=== PATIENT | male | born 1945 | race Caucasian/White ===

== ENCOUNTER 2016-08-12 14:35 | Emergency (ER) | payer MEDICARE, OTHER ==
--- NOTE | 2016-08-12 15:03 | ERPHSYRPT ---
- History of Present Illness Time Seen by Provider: 08/12/16 14:56 Historian: patient Exam Limitations: no limitations Patient Subjective Stated Complaint: PT BROUGHT IN BY EMS FROM [facility] REPORT CALLED TO THIS NURSE FROM NURSE AT [facility] STATED PT HAD LABS DRAWN TODAY STATED PT HAD ELEVEATED POTASSIUM BUN AND CREAT STATED ELEVATED BUN AND CREAT NEW FOR PT ALSO STATED PT HAD UROSTOMY AND COLOSTOMY PLACED IN LAST MONTH AT G TUBE PLACED IN LAST WEEK DUE TO PT NOT EATING STATES PT HAS ALSO BEEN COMPLAINING OF ABDOMINAL PAIN AND NAUSEA TODAY PT HAD PRN NORCO AT NOON AND REGULAR SCHEDULED 10/325 NORCO AT 1400 Triage Nursing Assessment: PT LETHARGIC WARM AND DRY RESP EASY NON LABORED. PT ORIENTED TO PERSON AND PLACE RAYSHAWN COLOR NOTED. ABDOMEN NON TENDER ON PALPATION. Physician History: The patient is a 70-year-old male brought in by ambulance from a intermediate where he is lethargic and complains of abdominal pain. Recent laboratory results from today show an increasing creatinine. He had a urostomy and colostomy placed as well as a G-tube. No N/V/D. Timing/Duration: today Activities at Onset: none Quality: aching Abdominal Pain Onset Location: generalized abdomen Pain Radiation: no radiation Severity of Pain-Max: moderate Severity of Pain-Current: moderate Modifying Factors: Improves With: nothing Associated Symptoms: denies symptoms Allergies/Adverse Reactions: No Known Drug Allergies Allergy (Verified 06/26/16 11:04) Home Medications: Allopurinol 300 mg [Zyloprim 300 mg] 300 mg PO DAILY 01/20/12 [History] Hydrocodone Bit/Acetaminophen [[place] 10-325 Tablet] 08/12/16 [History] Hx Tetanus, Diphtheria Vaccination/Date Given: No (UNKNOWN) Hx Influenza Vaccination/Date Given: No Hx Pneumococcal Vaccination/Date Given: No - Review of Systems Constitutional: Malaise Eyes: No Symptoms Ears, Nose, & Throat: No Symptoms Respiratory: No Cough, No Dyspnea Cardiac: No Chest Pain, No Edema, No Syncope Abdominal/Gastrointestinal: Abdominal Pain, Other (colostomy), No Nausea, No Vomiting, No Diarrhea Genitourinary Symptoms: Other (urostomy), No Dysuria Musculoskeletal: No Back Pain, No Neck Pain Skin: No Rash Neurological: No Dizziness, No Focal Weakness, No Sensory Changes Psychological: No Symptoms Endocrine: No Symptoms Hematologic/Lymphatic: No Symptoms Immunological/Allergic: No Symptoms All Other Systems: Reviewed and Negative - Past Medical History Pertinent Past Medical History: Yes Neurological History: No Pertinent History ENT History: No Pertinent History Cardiac History: No Pertinent History Respiratory History: No Pertinent History Endocrine Medical History: Hyperthyroidism, Other Musculoskeletal History: Arthritis GI Medical History: Colorectal Cancer, Polyps History: No Pertinent History Psycho-Social History: No Pertinent History Male Reproductive Disorders: No Pertinent History Other Medical History: gout,thyroid removed,colon cancer hx chemo and radiation. 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 DVT to left leg 2013. UROSTOMY,COLOSTOMY,GTUBE - Past Surgical History Past Surgical History: Yes Neuro Surgical History: No Pertinent History Cardiac: No Pertinent History Respiratory: No Pertinent History Gastrointestinal: Bowel Surgery, Colon Resection Genitourinary: No Pertinent History Musculoskeletal: Orthopedic Surgery Male Surgical History: Prostate Surgery Other Surgical History: port a cath, 3 colon resections,laminiectomy,3 knee scopes, rt hand thumb surgery, states prostate "zapped" Helop apr.22. - Social History Smoking Status: Former smoker How long have you smoked: 2 months Exposure to second hand smoke: No Drug Use: none Patient Lives Alone: No - Nursing Vital Signs Nursing Vital Signs: Initial Vital Signs Temperature 97.2 F Temperature Source Oral Pulse Rate 102 Respiratory Rate 18 Blood Pressure [] 100/64 - Physical Exam General Appearance: mild distress, lethargy Eye Exam: PERRL/EOMI, eyes nml inspection Ears, Nose, Throat Exam: normal ENT inspection, pharynx normal, moist mucous membranes Neck Exam: normal inspection, non-tender, supple, full range of motion Respiratory Exam: normal breath sounds, lungs clear, No respiratory distress Cardiovascular Exam: regular rate/rhythm, normal heart sounds Gastrointestinal/Abdomen Exam: tenderness Rectal Exam: not done Back Exam: normal inspection, normal range of motion, No CVA tenderness, No vertebral tenderness Extremity Exam: normal inspection, normal range of motion, pelvis stable Neurologic Exam: other (lethargic) Skin Exam: normal color, warm, dry SpO2 Interpretation: normal SpO2: 100 Oxygen Delivery: Room Air - Course EKG Interpreted by Me: RATE, Sinus Rhythm, NORMAL AXIS, NORMAL INTERVALS, NORMAL QRS, NORMAL ST-T, Other (no change comp EKG 06/23/16) - CT Exams Abdomen/Pelvis CT Interpretation: Tele-radiologist Report, Other (possible infected fluid collection in pelvic floor. hydronephrosis. ventral dehiscence. right lung base focal airspace disease.) Ordered Tests: Active Orders 24 hr Category Date Time Status EKG-ER Only STAT Care 08/12/16 15:07 Active IV Insertion STAT Care 08/12/16 15:07 Active ABDOMEN AND PELVIS W/0 CONTRAS [CT] Stat Exams 08/12/16 15:08 Completed ABG [ARTERIAL BLOOD GASES] Stat Lab 08/12/16 15:09 Completed CBC W DIFF Stat Lab 08/12/16 15:00 Completed CMP Stat Lab 08/12/16 15:00 Completed LIPASE Stat Lab 08/12/16 15:00 Completed Lactic Acid Urgent Lab 08/12/16 15:07 Completed Manual Differential NC Stat Lab 08/12/16 15:00 Completed Occult Blood,Stool Other Stat Lab 08/12/16 16:34 Completed Potassium (Lab Test) [Potassium] Stat Lab 08/12/16 17:59 Completed TROPONIN Stat Lab 08/12/16 15:00 Completed UA W/ MICROSCOPIC Stat Lab 08/12/16 15:45 Completed Medication Summary Discontinued Medications Generic Name Dose Route Start Last Admin Trade Name Freq PRN Reason Stop Dose Admin Sodium Chloride 1,000 mls @ 999 mls/hr 08/12/16 15:07 08/12/16 15:19 Sodium Chloride 0.9% 1000 Ml IV 08/12/16 16:07 999 mls/hr .Q1H1M STA Administration Sodium Chloride Confirm 08/12/16 15:13 Sodium Chloride 0.9% 1000 Ml Administered 08/12/16 15:14 Dose 1,000 mls @ ud .ROUTE .STK-MED ONE Insulin Human Regular 5 units/ 250.05 mls @ 500 mls/hr 08/12/16 16:30 16:32 Dextrose IV 08/12/16 17:29 500 mls/hr .Q30M SAMUEL Administration Sodium Chloride Confirm 08/12/16 17:21 Sodium Chloride 0.9% 1000 Ml Administered 08/12/16 17:22 Dose 1,000 mls @ ud .ROUTE .STK-MED ONE Lab/Rad Data: Laboratory Result Diagrams 08/12/16 15:00 08/12/16 17:59 Laboratory Results 08/12/16 08/12/16 08/12/16 Range/Units 17:59 16:34 15:45 WBC (4.0-10.5) K/mm3 RBC (4.1-5.6) M/mm3 Hgb (12.5-18.0) gm/dl Hct (42-50) % MCV (78-100) fl MCH (26-32) pg MCHC (32-36) g/dl RDW (11.5-14.0) % Plt Count (150-450) K/mm3 MPV (6-9.5) fl Segmented Neutrophils (36.-66.) % Band Neutrophils (0.0-2.0) % Lymphocytes (Manual) (24-44) % Monocytes (Manual) (0.0-12.0) % Differential Comment Toxic Granulation Platelet Estimate (NORMAL) Hypochromasia Poikilocytosis Anisocytosis Puncture Site pCO2 (35-45) mmHg pO2 (75-100) mmHg Base Excess (-2.0-2.0) O2 Saturation (94-100) g/dF ABG pH (7.35-7.45) ABG HCO3 (22-28) ABG O2 Sat (Measured) (95-100) % Kel Test A-a Gradient a/A Ratio Hemoglobin Carboxyhemoglobin (0.0-6.9) % THgb Methemoglobin (1.4-1.5) % Temperature C POC O2 Flow Rate % Sodium (136-145) mEq/L Potassium 5.6 H (3.5-5.1) mEq/L Chloride (98-107) mEq/L Carbon Dioxide (21-32) mEq/L Anion Gap (5-15) MEQ/L BUN (9-20) mg/dL Creatinine (0.55-1.30) mg/dl Estimated GFR ML/MIN Glucose (70-110) MG/DL Lactic Acid (0.4-2.0) Calcium (8.5-10.1) mg/dL Total Bilirubin (0.2-1.0) mg/dL AST (15-37) U/L ALT (12-78) U/L Alkaline Phosphatase (46-116) U/L Troponin I (0.000-0.056) ng/ml Serum Total Protein (6.4-8.2) gm/dL Albumin (3.4-5.0) g/dL Lipase (73-393) U/L Ur Collection Type CCMS Urine Color YELLOW (YELLOW) Urine Appearance CLOUDY (CLEAR) Urine pH 7.5 (5-6) Ur Specific [place] 1.015 (1.005-1.025) Urine Protein 30 (Negative) Urine Glucose (UA) NEGATIVE (NEGATIVE) mg/dL Urine Ketones NEGATIVE (NEGATIVE) Urine Nitrite NEGATIVE (NEGATIVE) Urine Bilirubin NEGATIVE (NEGATIVE) Urine Urobilinogen 0.2 (0-1) mg/dL Urine WBC (Auto) LARGE (NEGATIVE) Urine RBC (Auto) LARGE (0-5) Alex/ul Urine Microscopic RBC 25-50 (0-2) /HPF Urine Microscopic WBC 25-50 (0-5) /HPF Amorphous Crystals MODERATE (NEGATIVE) /HPF Urine Bacteria MODERATE (NEGATIVE) /HPF Stool Occult Blood POSITIVE (Negative) Specimen Received 08-12-16 1547 08/12/16 08/12/16 08/12/16 Range/Units 15:09 15:07 15:00 WBC (4.0-10.5) K/mm3 RBC (4.1-5.6) M/mm3 Hgb (12.5-18.0) gm/dl Hct (42-50) % MCV (78-100) fl MCH (26-32) pg MCHC (32-36) g/dl RDW (11.5-14.0) % Plt Count (150-450) K/mm3 MPV (6-9.5) fl Segmented Neutrophils (36.-66.) % Band Neutrophils (0.0-2.0) % Lymphocytes (Manual) (24-44) % Monocytes (Manual) (0.0-12.0) % Differential Comment Toxic Granulation Platelet Estimate (NORMAL) Hypochromasia Poikilocytosis Anisocytosis Puncture Site RIGHT BRACHIAL pCO2 37 (35-45) mmHg pO2 97 (75-100) mmHg Base Excess 3.9 H (-2.0-2.0) O2 Saturation 95.4 (94-100) g/dF ABG pH 7.48 H (7.35-7.45) ABG HCO3 27.6 (22-28) ABG O2 Sat (Measured) 96.2 (95-100) % Kel Test NOT APPLICABLE A-a Gradient 6 a/A Ratio 0.94 Hemoglobin 8.8 Carboxyhemoglobin 0.0 (0.0-6.9) % THgb Methemoglobin 0.7 L (1.4-1.5) % Temperature 37.0 C POC O2 Flow Rate 21 % Sodium 137 (136-145) mEq/L Potassium 6.4 H* 6.4 H* (3.5-5.1) mEq/L Chloride 103 (98-107) mEq/L Carbon Dioxide 29.3 (21-32) mEq/L Anion Gap 10.1 (5-15) MEQ/L BUN 121 H (9-20) mg/dL Creatinine 3.04 H (0.55-1.30) mg/dl Estimated GFR 22 ML/MIN Glucose 102 (70-110) MG/DL Lactic Acid 1.1 (0.4-2.0) Calcium 8.6 (8.5-10.1) mg/dL Total Bilirubin 0.3 (0.2-1.0) mg/dL AST 14 L (15-37) U/L ALT < 6 L (12-78) U/L Alkaline Phosphatase 152 H (46-116) U/L Troponin I < 0.017 (0.000-0.056) ng/ml Serum Total Protein 6.3 L (6.4-8.2) gm/dL Albumin 1.5 L (3.4-5.0) g/dL Lipase 186 (73-393) U/L Ur Collection Type Urine Color (YELLOW) Urine Appearance (CLEAR) Urine pH (5-6) Ur Specific [place] (1.005-1.025) Urine Protein (Negative) Urine Glucose (UA) (NEGATIVE) mg/dL Urine Ketones (NEGATIVE) Urine Nitrite (NEGATIVE) Urine Bilirubin (NEGATIVE) Urine Urobilinogen (0-1) mg/dL Urine WBC (Auto) (NEGATIVE) Urine RBC (Auto) (0-5) Alex/ul Urine Microscopic RBC (0-2) /HPF Urine Microscopic WBC (0-5) /HPF Amorphous Crystals (NEGATIVE) /HPF Urine Bacteria (NEGATIVE) /HPF Stool Occult Blood (Negative) Specimen Received 08/12/16 Range/Units 15:00 WBC 14.5 H (4.0-10.5) K/mm3 RBC 2.91 L (4.1-5.6) M/mm3 Hgb 8.7 L (12.5-18.0) gm/dl Hct 27.0 L (42-50) % MCV 92.8 (78-100) fl MCH 29.8 (26-32) pg MCHC 32.2 (32-36) g/dl RDW 18.5 H (11.5-14.0) % Plt Count 633 H (150-450) K/mm3 MPV 9.6 H (6-9.5) fl Segmented Neutrophils 77 H (36.-66.) % Band Neutrophils 1 (0.0-2.0) % Lymphocytes (Manual) 18 L (24-44) % Monocytes (Manual) 4 (0.0-12.0) % Differential Comment ABNORMAL Toxic Granulation 2+ Platelet Estimate INCREASED (NORMAL) Hypochromasia 2+ Poikilocytosis 2+ Anisocytosis 2+ Puncture Site pCO2 (35-45) mmHg pO2 (75-100) mmHg Base Excess (-2.0-2.0) O2 Saturation (94-100) g/dF ABG pH (7.35-7.45) ABG HCO3 (22-28) ABG O2 Sat (Measured) (95-100) % Kel Test A-a Gradient a/A Ratio Hemoglobin Carboxyhemoglobin (0.0-6.9) % THgb Methemoglobin (1.4-1.5) % Temperature C POC O2 Flow Rate % Sodium (136-145) mEq/L Potassium (3.5-5.1) mEq/L Chloride (98-107) mEq/L Carbon Dioxide (21-32) mEq/L Anion Gap (5-15) MEQ/L BUN (9-20) mg/dL Creatinine (0.55-1.30) mg/dl Estimated GFR ML/MIN Glucose (70-110) MG/DL Lactic Acid (0.4-2.0) Calcium (8.5-10.1) mg/dL Total Bilirubin (0.2-1.0) mg/dL AST (15-37) U/L ALT (12-78) U/L Alkaline Phosphatase (46-116) U/L Troponin I (0.000-0.056) ng/ml Serum Total Protein (6.4-8.2) gm/dL Albumin (3.4-5.0) g/dL Lipase (73-393) U/L Ur Collection Type Urine Color (YELLOW) Urine Appearance (CLEAR) Urine pH (5-6) Ur Specific [place] (1.005-1.025) Urine Protein (Negative) Urine Glucose (UA) (NEGATIVE) mg/dL Urine Ketones (NEGATIVE) Urine Nitrite (NEGATIVE) Urine Bilirubin (NEGATIVE) Urine Urobilinogen (0-1) mg/dL Urine WBC (Auto) (NEGATIVE) Urine RBC (Auto) (0-5) Alex/ul Urine Microscopic RBC (0-2) /HPF Urine Microscopic WBC (0-5) /HPF Amorphous Crystals (NEGATIVE) /HPF Urine Bacteria (NEGATIVE) /HPF Stool Occult Blood (Negative) Specimen Received - Progress Progress: improved Progress Note: 08/12/16 18:36 At the request of Dr. Aranda I contacted [facility] in [place] and discussed with numerous physicians the patient's findings and diagnoses. I spoke with Dr. Morales, Dr. Floyd, and DIRECTOR OF GRADUATE ADMISSIONS Shiloh who recommend that the patient remain at [facility] for hydration and reevaluation. Their concern was that the [address] ambulance to [place] would be more harmful than helpful to the patient. I spoke with Dr. Aranda once again apprising him of the situation in [place] and he requested that I try [facility] for transfer of the patient. I spoke with Dr. Flores,the hospitalist, Dr. Crockett the sales development consultant and Dr. Jones the urologist who accepts the patient for transfer. The patient will be placed in ICU at [facility] in [place]. Discussed with : Manoj (Discussed findings with Dr Aranda who recommends transfer to [facility]) Counseled pt/family regarding: lab results, diagnosis, rad results - Departure Time of Disposition: 18:42 Departure Disposition: Transfer (Transfer to [facility] per Bon Mccracken, and Robert) Clinical Impression: Acute renal failure, Hyperkalemia, Dehydration, Hydronephrosis Condition: Good Critical Care Time: No
[2016-08-12] MEDS ORDERED: Sodium Chloride 0.9% 1000 ML 1,000 ML IV STA (15:07)
[2016-08-12] MEDS ORDERED: Sodium Chloride 0.9% 1000 ML 1,000 ML ONE ×3 (15:13→18:56)
[2016-08-12 15:19] LABS: Mean Cell Volume 92.8 fl (78-100); Mean Corpuscular Hemoglobin 29.8 pg (26-32); Mean Platelet Volume 9.6 fl (6-9.5); Platelet Count 633 K/mm3 (150-450); Red Blood Count 2.91 M/mm3 (4.1-5.6); Red Cell Distribution Width 18.5 % (11.5-14.0); White Blood Count 14.5 K/mm3 (4.0-10.5)
[2016-08-12 15:47] LABS: A-aADO2 6; ARTERIAL BLD GAS O2 SATURATION 96.2 % (95-100); ARTERIAL BLOOD GAS BASE EXCESS 3.9 (-2.0-2.0); ARTERIAL BLOOD GAS FIO2 21 %; ARTERIAL BLOOD GAS PO2 97 mmHg (75-100); ARTERIAL BLOOD GAS pH 7.48 (7.35-7.45)
[2016-08-12 15:49] LABS: ALBUMIN 1.5 g/dL (3.4-5.0); ALKALINE PHOSPHATASE 152 U/L (46-116); ANION GAP 10.1 MEQ/L (5-15); BILIRUBIN,TOTAL 0.3 mg/dL (0.2-1.0); BLOOD UREA NITROGEN 121 mg/dL (9-20); CHLORIDE 103 mEq/L (98-107); Carbon Dioxide 29.3 mEq/L (21-32); Glucose 102 MG/DL (70-110); LIPASE 186 U/L (73-393); SGOT/AST 14 U/L (15-37); SODIUM 137 mEq/L (136-145); Total Protein 6.3 gm/dL (6.4-8.2)
[2016-08-12 15:50] LABS: Potassium 6.4 mEq/L (3.5-5.1); SGPT/ALT < 6 U/L (12-78); TROPONIN < 0.017 ng/ml (0.000-0.056)
[2016-08-12 15:57] LABS: BAND 1 % (0.0-2.0); Total Cells Counted 100
[2016-08-12 15:58] LABS: Platelet Estimate INCREASED (NORMAL); Toxic Granulation 2+
[2016-08-12 15:59] LABS: ANISOCYTOSIS 2+; Hypochromia 2+; Poikilocytosis 2+
[2016-08-12 16:09] LABS: Collection Type CCMS
[2016-08-12 16:10] LABS: Ph 7.5 (5-6)
[2016-08-12 16:11] LABS: COMPLETE URINE MICROSCOPIC? YES
[2016-08-12 16:14] LABS: Bacteria MODERATE /HPF (NEGATIVE); WBC 25-50 /HPF (0-5)
--- NOTE | 2016-08-12 16:16 | XRAY ---
Indication: Abdominal pain and vomiting. History of colon cancer with colostomy and urostomy. Multiple contiguous axial images obtained through the abdomen and pelvis without contrast as ordered. Enteric contrast given. Comparison: CT abdomen December 04, 2009 Lung bases demonstrate small focus of groundglass airspace opacity in the right base posteriorly. Also new 7 mm noncalcified subpleural nodule in the left lung base posterior medially indeterminant at this time. Heart is not enlarged. New PEG tube with the balloon tip in the antral portion of the stomach lumen. There has been interval right hemicolectomy with new left lower quadrant diverting colostomy. Stomach and bowel loops appear nonobstructed. In the posterior pelvic floor, there is a curvilinear opacity partially surrounding the colon/rectum measuring at least 8.3 cm in transverse diameter and 4 cm in thickness with tiny air bubbles concerning for infected fluid collection. Hounsfield units are 13-26. Urinary bladder surgically absent with bilateral double-J ureteral stent catheters terminating in right lower quadrant ileoconduit and eventually exiting via right lower quadrant urostomy. Both kidneys are mildly hydronephrotic and both ureters are also slightly prominent, left greater than right. Patency of the ureteral stent catheters are in question. Remaining liver, gallbladder, pancreas, spleen, adrenal glands, and kidneys appear unremarkable for noncontrast exam. Minimal aortic calcifications without AAA. Osseous structures intact with mild spinal degenerative changes. Infraumbilical midline ventral incision appears widened concerning for dehiscence. Impression: 1. There is irregular opacity in the pelvic floor posteriorly with tiny air bubbles concerning for infected fluid collection. 2. Postsurgical changes including partial colectomy with diverting left lower quadrant colostomy and PEG tube in situ. 3. Cystectomy with right lower quadrant ileoconduit and bilateral ureteral stent catheters. There is mild bilateral hydronephrosis and mild bilateral hydroureter. Patency of the ureteral stent catheters are in question. Comparison studies would be of benefit. 4. New indeterminate 7 mm noncalcified subpleural nodule in the left lung base. 5. Query infraumbilical ventral incisional dehiscence. 6. Right lung base focal airspace disease. CTDI 16.44
[2016-08-12] MEDS ORDERED: [UNRECOGNIZED DRUG - OTHER] IV SCH (16:30)
[2016-08-12] MEDS ORDERED: DEXTROSE 10% IV SCH (16:30)
[2016-08-12 17:06] VITALS: O2SAT 100
[2016-08-12] MEDS ORDERED: Sodium Chloride 0.9% 1000 ML 1,000 ML IV SCH (19:00)
[2016-08-12 19:03] VITALS: BP 101/55; PULSE 100
== END 2016-08-12 19:55 | disposition short-term general hospital (02) ==
LOC: ED 14:35
DX: N17.9 Acute kidney failure, unspecified (principal); E87.5 Hyperkalemia; N13.30 Unspecified hydronephrosis; Z93.3 Colostomy status; Z93.1 Gastrostomy status; Z93.6 Other artificial openings of urinary tract status; R10.84 Generalized abdominal pain; R53.83 Other fatigue; Z85.038 Personal history of other malignant neoplasm of large intestine
CPT/HCPCS: 36415; 36600; 74176; 80053; 81000; 82272; 82375; 82803; 83605; 83690; 84132; 84484; 85025; 93005; 96360; 96361; 96365; 99284; J1815

== ENCOUNTER 2017-01-26 11:38 | Observation (INO) | payer MEDICARE, OTHER ==
[2017-01-26] MEDS ORDERED: Sodium Chloride 0.9% 1000 ML 1,000 ML IV SCH (12:00)
[2017-01-26] MEDS ORDERED: Sodium Chloride 0.9% 1000 ML 1,000 ML ONE (12:03)
[2017-01-26 12:15] LABS: BASOPHIL % 0.3 % (0.0-0.4); Eosinophil % 3.1 % (0.00-5.0); Granulocytes % 72.8 % (36.0-66.0); Lymphocytes % 15.7 % (24.0-44.0); Mean Corpuscular Hemoglobin 29.4 pg (26-32); Mean Platelet Volume 8.5 fl (6-9.5); Monocytes % 8.1 % (0.0-12.0); Platelet Count 393 K/mm3 (150-450); Red Blood Count 2.65 M/mm3 (4.1-5.6); Red Cell Distribution Width 14.1 % (11.5-14.0); White Blood Count 9.5 K/mm3 (4.0-10.5)
[2017-01-26 13:02] LABS: ALBUMIN 2.5 g/dL (3.4-5.0); ANION GAP 14.9 MEQ/L (5-15); BILIRUBIN,TOTAL 0.3 mg/dL (0.2-1.0); Carbon Dioxide 27.1 mEq/L (21-32); Potassium 4.8 mEq/L (3.5-5.1)
--- NOTE | 2017-01-26 13:15 | ERPHSYRPT ---
- History of Present Illness Time Seen by Provider: 01/26/17 11:48 Source: patient, EMS, custodial records Patient Subjective Stated Complaint: [facility] REPORTS PATIENT HAD LABS DRAWN THIS AM AND POTASSIUM WAS ELEVATED AND HGB LOW. PATIENT STATES HE HASN'T FELT WELL FOR TWO DAYS. HAVING DIZZINESS AND FEELS OFF BALANCE WHEN HE WALKS. Triage Nursing Assessment: TO ROOM PER EMS COT. SKIN W/D, PALE. RESP NONLABORED. PATIENT AMBULATED FROM COT TO ER BED AND WAS UNSTEADY. Physician History: CC: weakness Hx: 71 y/o man from [facility] has hx of colon cancer s/p surgical treatment with urostomy and colostomy in Dec. He noted presyncope and feeling like going to pass out when up for the past 4 days. He was noted to have worsened anemia and his K was high so he was sent to ER. No chest or abd pain. No vomiting. No fever or chills. Allergies/Adverse Reactions: No Known Drug Allergies Allergy (Verified 01/26/17 12:05) Home Medications: Allopurinol 300 mg [Zyloprim 300 mg] 300 mg PO DAILY 01/20/12 [History] Hydrocodone Bit/Acetaminophen [[place] 10-325 Tablet] 5 mg PO Q4HPRN PRN 08/12/16 [History] PANTOPRAZOLE 40 mg Tablet [Protonix 40MG Tablet] 40 mg PO BID 01/26/17 [ History] Hx Tetanus, Diphtheria Vaccination/Date Given: No (UNKNOWN) Hx Influenza Vaccination/Date Given: No Hx Pneumococcal Vaccination/Date Given: Yes - Review of Systems Constitutional: Fatigue, Malaise, Weakness, No Fever, No Chills Eyes: No Symptoms Ears, Nose, & Throat: No Symptoms Respiratory: No Cough, No Dyspnea Cardiac: No Chest Pain Abdominal/Gastrointestinal: No Abdominal Pain, No Nausea, No Vomiting Neurological: No Focal Weakness, No Parasthesia All Other Systems: Reviewed and Negative - Past Medical History Pertinent Past Medical History: Yes Neurological History: No Pertinent History ENT History: No Pertinent History Cardiac History: No Pertinent History Respiratory History: No Pertinent History Endocrine Medical History: Hyperthyroidism, Other Musculoskeletal History: Arthritis GI Medical History: Colorectal Cancer, Polyps History: No Pertinent History Psycho-Social History: No Pertinent History Male Reproductive Disorders: No Pertinent History Other Medical History: gout,thyroid removed,colon cancer hx chemo and radiation. 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 DVT to left leg 2013. UROSTOMY,COLOSTOMY,GTUBE - Past Surgical History Past Surgical History: Yes Neuro Surgical History: No Pertinent History Cardiac: No Pertinent History Respiratory: No Pertinent History Gastrointestinal: Bowel Surgery, Colon Resection Genitourinary: No Pertinent History Musculoskeletal: Orthopedic Surgery Male Surgical History: Prostate Surgery Other Surgical History: port a cath, 3 colon resections,laminiectomy,3 knee scopes, rt hand thumb surgery, states prostate "zapped" Helop apr.22. - Social History Smoking Status: Former smoker How long have you smoked: 2 months Exposure to second hand smoke: No Drug Use: none Patient Lives Alone: No - Nursing Vital Signs Nursing Vital Signs: Initial Vital Signs Temperature 97.7 F Temperature Source Oral Pulse Rate 90 Respiratory Rate 16 Blood Pressure [Right Arm] 84/56 Pain Intensity 0 - Physical Exam General Appearance: alert Eye Exam: PERRL/EOMI Ears, Nose, Throat Exam: dry mucous membranes Neck Exam: normal inspection, supple Respiratory Exam: normal breath sounds, diminished breath sounds Cardiovascular Exam: regular rate/rhythm Gastrointestinal/Abdomen Exam: soft, other (colostomy has black stool), No tenderness, No distention Male Genitalia Exam: other (some pus from penis which he states is long standing ) Extremity Exam: pedal edema Neurologic Exam: alert, oriented x 3, cooperative, sensation nml, No motor deficits Skin Exam: warm, dry SpO2 Interpretation: normal SpO2: 99 Oxygen Delivery: Room Air - Course Nursing assessment & vital signs reviewed: Yes EKG Interpreted by Me: RATE (90), Sinus Rhythm, NORMAL AXIS, NORMAL INTERVALS ( QTc 424), NORMAL QRS, NORMAL ST-T - Radiology Exams cxr X-ray Interpretation: Reviewed by me (no acute) Ordered Tests: Active Orders 24 hr Category Date Time Status EKG-ER Only STAT Care 01/26/17 11:48 Active IV Insertion STAT Care 01/26/17 11:48 Active Orthostatic Vital Signs STAT Care 01/26/17 13:29 Active CHEST 1 VIEW (PORTABLE) Stat Exams 01/26/17 11:48 Taken CBC W DIFF Stat Lab 01/26/17 11:48 Completed CMP Stat Lab 01/26/17 12:00 Completed Lactic Acid Stat Lab 01/26/17 12:13 Completed Occult Blood,Stool Other Stat Lab 01/26/17 11:49 Completed Medication Summary Generic Name Dose Route Start Last Admin Trade Name Christian PRN Reason Stop Dose Admin Sodium Chloride 1,000 mls @ 50 mls/hr 01/26/17 12:00 01/26/17 12:04 Sodium Chloride 0.9% 1000 Ml IV 02/25/17 11:59 50 mls/hr .Q20H SAMUEL Administration Lab/Rad Data: Laboratory Result Diagrams 01/26/17 11:48 01/26/17 12:00 Laboratory Results 01/26/17 01/26/17 01/26/17 Range/Units 12:13 12:00 12:00 WBC (4.0-10.5) K/mm3 RBC (4.1-5.6) M/mm3 Hgb (12.5-18.0) gm/dl Hct (42-50) % MCV (78-100) fl MCH (26-32) pg MCHC (32-36) g/dl RDW (11.5-14.0) % Plt Count (150-450) K/mm3 MPV (6-9.5) fl Gran % (36.0-66.0) % Lymphocytes % (24.0-44.0) % Monocytes % (0.0-12.0) % Eosinophils % (0.00-5.0) % Basophils % (0.0-0.4) % Basophils # (0-0.4) Sodium 135 L (136-145) mEq/L Potassium 4.8 (3.5-5.1) mEq/L Chloride 98 (98-107) mEq/L Carbon Dioxide 27.1 (21-32) mEq/L Anion Gap 14.9 (5-15) MEQ/L BUN 69 H (9-20) mg/dL Creatinine 2.08 H (0.55-1.30) mg/dl Estimated GFR 33 ML/MIN Glucose 122 H (70-110) MG/DL Lactic Acid 1.2 (0.4-2.0) Calcium 9.6 (8.5-10.1) mg/dL Total Bilirubin 0.30 (0.2-1.0) mg/dL AST 20 (15-37) U/L ALT 23 (12-78) U/L Alkaline Phosphatase 112 (46-116) U/L Serum Total Protein 7.0 (6.4-8.2) gm/dL Albumin 2.5 L (3.4-5.0) g/dL Stool Occult Blood (Negative) ABO Group A Rh Factor POSITIVE Antibody Screen NEGATIVE (NEGATIVE) 01/26/17 01/26/17 Range/Units 11:49 11:48 WBC 9.5 (4.0-10.5) K/mm3 RBC 2.65 L (4.1-5.6) M/mm3 Hgb 7.8 L (12.5-18.0) gm/dl Hct 24.9 L (42-50) % MCV 94.0 (78-100) fl MCH 29.4 (26-32) pg MCHC 31.3 L (32-36) g/dl RDW 14.1 H (11.5-14.0) % Plt Count 393 (150-450) K/mm3 MPV 8.5 (6-9.5) fl Gran % 72.8 H (36.0-66.0) % Lymphocytes % 15.7 L (24.0-44.0) % Monocytes % 8.1 (0.0-12.0) % Eosinophils % 3.1 (0.00-5.0) % Basophils % 0.3 (0.0-0.4) % Basophils # 0.03 (0-0.4) Sodium (136-145) mEq/L Potassium (3.5-5.1) mEq/L Chloride (98-107) mEq/L Carbon Dioxide (21-32) mEq/L Anion Gap (5-15) MEQ/L BUN (9-20) mg/dL Creatinine (0.55-1.30) mg/dl Estimated GFR ML/MIN Glucose (70-110) MG/DL Lactic Acid (0.4-2.0) Calcium (8.5-10.1) mg/dL Total Bilirubin (0.2-1.0) mg/dL AST (15-37) U/L ALT (12-78) U/L Alkaline Phosphatase (46-116) U/L Serum Total Protein (6.4-8.2) gm/dL Albumin (3.4-5.0) g/dL Stool Occult Blood POSITIVE (Negative) ABO Group Rh Factor Antibody Screen (NEGATIVE) - Progress Progress Note: 01/26/17 13:54 Pt has black stool in ostomy that is heme positive. Hg low. K ok. He does have some hypotension. Called Dr Boyer for Manoj and will place in obs for IVF and serial H/H. Counseled pt/family regarding: lab results, diagnosis, need for follow-up, rad results - Departure Time of Disposition: 13:55 Departure Disposition: Observation Clinical Impression: Anemia, GI bleeding, Hypotension, Hx of malignant neoplasm of colon Condition: Fair Critical Care Time: No
[2017-01-26] MEDS ORDERED: PROTONIX 40 MG IV IV ONE ×2 (13:56→13:57)
[2017-01-26 14:06] LABS: INR 1.18 (0.8-3.0); PROTIME 13.3 SECONDS (8.83-12.87)
[2017-01-26 14:08] LABS: PTT 53.9 SECONDS (24.1-36.1)
[2017-01-26] MEDS ORDERED: Zofran 4 MG/2 ML VIAL IV PRN (14:47)
[2017-01-26 16:16] LABS: BASOPHIL % 0.2 % (0.0-0.4); Eosinophil % 2.8 % (0.00-5.0); Granulocytes % 73.7 % (36.0-66.0); Lymphocytes % 15.5 % (24.0-44.0); Mean Cell Volume 93.7 fl (78-100); Mean Platelet Volume 7.9 fl (6-9.5); Monocytes % 7.8 % (0.0-12.0); Platelet Count 354 K/mm3 (150-450); Red Blood Count 2.52 M/mm3 (4.1-5.6); White Blood Count 8.5 K/mm3 (4.0-10.5)
[2017-01-26 16:17] LABS: Mean Corpuscular Hemoglobin 28.9 pg (26-32)
--- NOTE | 2017-01-26 20:20 | XRAY ---
Indication: Hyperkalemia. Comparison: June 23, 2016. Portable chest remains hyperinflated and clear. Heart is not enlarged. Vascularity normal. Stable left sided Port-A-Cath. Bony thorax intact. Impression: Stable nonacute hyperinflated chest.
[2017-01-26] MEDS: Carafate 1 GM PO SCH (21:11)
[2017-01-26] MEDS: FEOSOL 325 MG PO SCH (21:13)
[2017-01-26] MEDS: Protonix 40MG Tablet PO SCH (21:13)
[2017-01-26] MEDS: REMERON 30 MG PO SCH (21:14)
[2017-01-26] MEDS ORDERED: PATIENT OWN MEDICATION PO SCH ×2 (22:00)
[2017-01-26] MEDS: Norco 10/325 MG Tablet PO SCH (22:26)
[2017-01-27] MEDS: Sodium Chloride 0.9% 1000 ML 1,000 ML IV SCH ×3 (03:08→21:59)
[2017-01-27 04:20] LABS: Mean Cell Volume 91.3 fl (78-100); Mean Corpuscular Hemoglobin 29.4 pg (26-32); Mean Platelet Volume 8.6 fl (6-9.5); Platelet Count 310 K/mm3 (150-450); Red Blood Count 3.33 M/mm3 (4.1-5.6); Red Cell Distribution Width 14.1 % (11.5-14.0); White Blood Count 7.5 K/mm3 (4.0-10.5)
[2017-01-27 04:50] LABS: ALBUMIN 2.3 g/dL (3.4-5.0); BILIRUBIN,TOTAL 0.9 mg/dL (0.2-1.0); Carbon Dioxide 26.6 mEq/L (21-32); Potassium 4.7 mEq/L (3.5-5.1); Total Protein 6.7 gm/dL (6.4-8.2)
[2017-01-27 06:04] LABS: Basophil 1 % (0.0-1.0); Eosinophil 3 % (0.00-3.0); Total Cells Counted 100
[2017-01-27 06:06] LABS: ANISOCYTOSIS 1+; Platelet Estimate NORMAL (NORMAL); Poikilocytosis 1+; Polychromasia 1+
[2017-01-27] MEDS: Carafate 1 GM PO SCH ×4 (06:33→22:01)
[2017-01-27] MEDS ORDERED: MILK OF MAGNESIA 30 ML PO PRN (07:29)
[2017-01-27] MEDS ORDERED: NORCO 5/325 MG PO PRN (07:29)
[2017-01-27] MEDS ORDERED: Colace 100 MG PO PRN (07:29)
[2017-01-27] MEDS ORDERED: TYLENOL 325 MG PO PRN (07:29)
[2017-01-27] MEDS ORDERED: MEDICATION INTERVENTION MC PRN (08:04)
[2017-01-27] MEDS: ZYLOPRIM 300 MG PO SCH (08:25)
[2017-01-27] MEDS: FEOSOL 325 MG PO SCH ×3 (08:25→22:01)
[2017-01-27] MEDS: PROZAC 10 MG PO SCH (08:25)
[2017-01-27] MEDS: MAG-OX 400 PO SCH (08:25)
[2017-01-27] MEDS: ZOFRAN ODT 4 MG PO SCH ×4 (08:25→19:50)
[2017-01-27] MEDS: Miralax Powder 17GM PACKET PO SCH (08:25)
[2017-01-27] MEDS: Protonix 40MG Tablet PO SCH ×2 (08:26→22:01)
[2017-01-27] MEDS: Norco 10/325 MG Tablet PO SCH ×3 (08:26→22:07)
[2017-01-27] MEDS: Calcium 500MG W/Vit D Tablet PO SCH (08:26)
[2017-01-27] MEDS: SYNTHROID 150 MCG PO SCH (08:26)
[2017-01-27] MEDS ORDERED: POLYETHYLENE GLYCOL PO SCH (10:00)
[2017-01-27] MEDS ORDERED: PROTONIX 40 MG IV IV SCH (10:00)
--- NOTE | 2017-01-27 11:56 | PCM.HP ---
History of Present Illness - Chief Complaint Chief Complaint: ANEMIA, HYPOTENSION, GI BLEED History of Present Illness: Mr.DESOTELL PUGH is a 71 year old male with a very complex medical history including multiple abdominal surgeries stemming from colon cancer with ileostomy and colostomy, fistula repair etc. He has had abnormal labs so was admitted, feels tired. Denies any new abdominal pain, no fever, no vomiting, has black stool in ostomy but he states it is always dark due to his iron therapy. Has had surgeries and multiple hospitalizations at [facility] in [place], uncertain when he last had an EGD etc. - Review of Systems Constitutional: Fatigue, No Fever, No Chills Respiratory: No Cough, No Short Of Breath Cardiac: No Chest Pain, No Edema, No Syncope Abdominal/Gastrointestinal: No Abdominal Pain, No Nausea, No Vomiting All Other Systems: Reviewed and Negative Medications & Allergies Home Medications: Home Medication List Allopurinol 300 mg [Zyloprim 300 mg] 300 mg PO DAILY 01/20/12 [History Confirmed 01/26/17] Ferrous Sulfate 325 mg [Feosol 325 mg] 325 mg PO TID #0 tablet 05/26/16 [ Rx Confirmed 01/26/17] Hydrocodone Bit/Acetaminophen [[place] 10-325 Tablet] 10 mg PO TID 08/12/16 [ History Confirmed 01/26/17] Acetaminophen [Tylenol] 650 mg PO Q4H PRN 01/26/17 [History Confirmed 01/26/17] Calcium Carbonate/Vitamin D3 [[place] 500-Vit D3 200 Tablet] 1 each PO DAILY 01/26 [History Confirmed 01/26/17] Docusate Sodium 100 mg [Colace 100 MG] 100 mg PO Q12H PRN PRN 01/26/17 [ History Confirmed 01/26/17] Dronabinol [Marinol] 2.5 mg PO BID 01/26/17 [History Confirmed 01/26/17] Fluoxetine HCl 10 mg [Prozac 10 mg] 10 mg PO DAILY 01/26/17 [History Confirmed 01/26/17] Hydrocodone Bit/Acetaminophen [[place] 5-325 Tablet] 1 each PO Q4H PRN 01/26/17 [ History Confirmed 01/26/17] Levothyroxine Sodium 150 Mcg [Synthroid 150 Mcg] 150 mcg PO DAILY 01/26/17 [History Confirmed 01/26/17] Magnesium Hydroxide [Milk of Magnesia] 5 ml PO DAILY PRN 01/26/17 [History Confirmed 01/26/17] Magnesium Oxide [Magnesium] 400 mg PO DAILY 01/26/17 [History Confirmed 01/26/17 ] Melatonin/Pyridoxine HCl (B6) [Melatonin 1 mg Tablet] 4 each PO HS 01/26/17 [ History Confirmed 01/26/17] Mirtazapine [Remeron] 15 mg PO HS 01/26/17 [History Confirmed 01/26/17] Ondansetron [Zofran Odt] 4 mg PO Q4H 01/26/17 [History Confirmed 01/26/17] PANTOPRAZOLE 40 mg Tablet [Protonix 40MG Tablet] 40 mg PO BID 01/26/17 [ History Confirmed 01/26/17] Polyethylene Glycol 3350 [Miralax Powder] 17 gm PO DAILY 01/26/17 [History Confirmed 01/26/17] Sucralfate 1 gm [Carafate 1 GM] 1 g PO QID 01/26/17 [History Confirmed 11/09] Allergies/Adverse Reactions: Allergies Allergy/AdvReac Type Severity Reaction Status Date / Time No Known Drug Allergies Allergy Verified 01/26/17 12:05 - Past Medical History Past Medical History: Yes Neurological History: No Pertinent History ENT History: No Pertinent History Cardiac History: No Pertinent History Respiratory History: No Pertinent History Endocrine Medical History: Hyperthyroidism, Other Musculoskelatal History: Arthritis GI Medical History: Colorectal Cancer, Polyps History: No Pertinent History Pyscho-Social History: No Pertinent History Male Reproductive Disorders: No Pertinent History Comment: gout,thyroid removed,colon cancer hx chemo and radiation. 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 DVT to left leg 2013. UROSTOMY,COLOSTOMY,GTUBE - Past Surgical History Past Surgical History: Yes Neuro Surgical History: No Pertinent History Cardiac History: No Pertinent History Respiratory Surgery: No Pertinent History GI Surgical History: Bowel Surgery, Colon Resection Genitourinary Surgical Hx: No Pertinent History Musculskeletal Surgical Hx: Orthopedic Surgery Male Surgical History: Prostate Surgery Other Surgical History: port a cath, 3 colon resections,laminiectomy,3 knee scopes, rt hand thumb surgery, states prostate "zapped" Helop apr.22. - Social History Smoking Status: Former smoker How long have you smoked: 2 months Exposure to second hand smoke: Yes Alcohol: None Drug Use: none - Physical Exam Vital Signs: Vital Signs - 24 hr Temp Pulse Resp BP Pulse Ox 01/27/17 11:00 97.9 F 72 18 86/53 95 01/27/17 09:00 77 18 86/54 97 01/27/17 08:00 18 01/27/17 07:00 98.2 F 83 18 100/62 99 01/27/17 05:00 98.0 F 80 16 103/61 98 01/27/17 02:52 97.7 F 83 18 93/53 97 01/27/17 01:05 97.7 F 79 90/52 01/27/17 00:35 97.8 F 80 83/53 97 01/27/17 00:00 97.8 F 82 85/52 96 01/26/17 23:54 97.9 F 87 16 90/55 96 01/26/17 22:20 98.3 F 86 18 96/55 97 01/26/17 21:50 98.5 F 89 81/47 01/26/17 20:00 98.7 F 84 17 90/51 98 01/26/17 18:00 98.1 F 83 18 80/50 97 01/26/17 16:00 81 18 88/53 95 01/26/17 14:51 97.6 F 83 20 97/57 98 01/26/17 13:56 99 01/26/17 12:56 90 16 84/56 99 Oxygen-Last 24 hours O2 Percentage 3 Liters = 32% General Appearance: no apparent distress, alert Respiratory Exam: normal breath sounds, lungs clear, No respiratory distress Cardiovascular Exam: regular rate/rhythm, normal heart sounds, normal peripheral pulses Gastrointestinal/Abdomen Exam: soft, normal bowel sounds, No tenderness, No mass Extremity Exam: normal inspection, normal range of motion, pelvis stable Results - Labs Lab/Micro Results: Lab Results-Last 24 Hours 01/26/17 01/26/17 01/26/17 Range/Units 16:13 20:15 20:15 WBC 8.5 (4.0-10.5) K/mm3 RBC 2.52 L (4.1-5.6) M/mm3 Hgb 7.3 L (12.5-18.0) gm/dl Hct 23.6 L (42-50) % MCV 93.7 (78-100) fl MCH 28.9 (26-32) pg MCHC 30.9 L (32-36) g/dl RDW 14.0 (11.5-14.0) % Plt Count 354 (150-450) K/mm3 MPV 7.9 (6-9.5) fl Gran % 73.7 H (36.0-66.0) % Lymphocytes % 15.5 L (24.0-44.0) % Monocytes % 7.8 (0.0-12.0) % Eosinophils % 2.8 (0.00-5.0) % Basophils % 0.2 (0.0-0.4) % Segmented Neutrophils (36.-66.) % Lymphocytes (Manual) (24-44) % Monocytes (Manual) (0.0-12.0) % Eosinophils (Manual) (0.00-3.0) % Basophils (Manual) (0.0-1.0) % Basophils # 0.02 (0-0.4) Differential Comment Platelet Estimate (NORMAL) Polychromasia Poikilocytosis Anisocytosis Sodium (136-145) mEq/L Potassium (3.5-5.1) mEq/L Chloride (98-107) mEq/L Carbon Dioxide (21-32) mEq/L Anion Gap (5-15) MEQ/L BUN (9-20) mg/dL Creatinine (0.55-1.30) mg/dl Estimated GFR ML/MIN Glucose (70-110) MG/DL Calcium (8.5-10.1) mg/dL Total Bilirubin (0.2-1.0) mg/dL AST (15-37) U/L ALT (12-78) U/L Alkaline Phosphatase (46-116) U/L Serum Total Protein (6.4-8.2) gm/dL Albumin (3.4-5.0) g/dL Crossmatch COMPATIBLE COMPATIBLE (COMPATIBLE) 01/27/17 01/27/17 Range/Units 04:15 04:15 WBC 7.5 (4.0-10.5) K/mm3 RBC 3.33 L (4.1-5.6) M/mm3 Hgb 9.8 L (12.5-18.0) gm/dl Hct 30.4 L (42-50) % MCV 91.3 (78-100) fl MCH 29.4 (26-32) pg MCHC 32.2 (32-36) g/dl RDW 14.1 H (11.5-14.0) % Plt Count 310 (150-450) K/mm3 MPV 8.6 (6-9.5) fl Gran % (36.0-66.0) % Lymphocytes % (24.0-44.0) % Monocytes % (0.0-12.0) % Eosinophils % (0.00-5.0) % Basophils % (0.0-0.4) % Segmented Neutrophils 76 H (36.-66.) % Lymphocytes (Manual) 12 L (24-44) % Monocytes (Manual) 8 (0.0-12.0) % Eosinophils (Manual) 3 (0.00-3.0) % Basophils (Manual) 1 (0.0-1.0) % Basophils # (0-0.4) Differential Comment ABNORMAL Platelet Estimate NORMAL (NORMAL) Polychromasia 1+ Poikilocytosis 1+ Anisocytosis 1+ Sodium 137 (136-145) mEq/L Potassium 4.7 (3.5-5.1) mEq/L Chloride 101 (98-107) mEq/L Carbon Dioxide 26.6 (21-32) mEq/L Anion Gap 14.0 (5-15) MEQ/L BUN 59 H (9-20) mg/dL Creatinine 1.96 H (0.55-1.30) mg/dl Estimated GFR 36 ML/MIN Glucose 90 (70-110) MG/DL Calcium 9.3 (8.5-10.1) mg/dL Total Bilirubin 0.90 (0.2-1.0) mg/dL AST 20 (15-37) U/L ALT 20 (12-78) U/L Alkaline Phosphatase 104 (46-116) U/L Serum Total Protein 6.7 (6.4-8.2) gm/dL Albumin 2.3 L (3.4-5.0) g/dL Crossmatch (COMPATIBLE) Assessment/Plan (1) Anemia Current Visit: Yes Status: Acute Assessment & Plan: s/p transfusion, h/h stable Code(s): D64.9 - ANEMIA, UNSPECIFIED (2) GI bleeding Current Visit: Yes Status: Acute Assessment & Plan: continue protonix, records requested [facility], may need to consider EGD if not done recently since heme + stool in ostomy and recurring anemia Code(s): K92.2 - GASTROINTESTINAL HEMORRHAGE, UNSPECIFIED (3) Hx of malignant neoplasm of colon Current Visit: Yes Status: Acute Code(s): Z85.038 - PERSONAL HISTORY OF MALIGNANT NEOPLASM OF LARGE INTESTINE (4) CKD (chronic kidney disease) Current Visit: No Status: Acute Code(s): N18.9 - CHRONIC KIDNEY DISEASE, UNSPECIFIED (5) Dehydration Current Visit: No Status: Acute Code(s): E86.0 - DEHYDRATION
[2017-01-27] MEDS ORDERED: PATIENT OWN MEDICATION PO SCH (12:00)
[2017-01-27] MEDS ORDERED: MELATONIN PO SCH (22:00)
[2017-01-27] MEDS ORDERED: PYRIDOXINE HCL PO SCH (22:00)
[2017-01-27] MEDS: REMERON 30 MG PO SCH (22:08)
[2017-01-28] MEDS: ZOFRAN ODT 4 MG PO SCH ×3 (00:10→07:58)
[2017-01-28 05:37] LABS: BASOPHIL % 0.1 % (0.0-0.4); Eosinophil % 3.3 % (0.00-5.0); Granulocytes % 73.8 % (36.0-66.0); Lymphocytes % 13.3 % (24.0-44.0); Mean Cell Volume 91.8 fl (78-100); Mean Corpuscular Hemoglobin 29.2 pg (26-32); Mean Platelet Volume 8.7 fl (6-9.5); Monocytes % 9.5 % (0.0-12.0); Platelet Count 274 K/mm3 (150-450); Red Blood Count 3.18 M/mm3 (4.1-5.6); Red Cell Distribution Width 14.8 % (11.5-14.0); White Blood Count 7.4 K/mm3 (4.0-10.5)
[2017-01-28 06:05] LABS: ANION GAP 12.2 MEQ/L (5-15); BILIRUBIN,TOTAL 0.3 mg/dL (0.2-1.0); Carbon Dioxide 26.9 mEq/L (21-32); Potassium 4.1 mEq/L (3.5-5.1); Total Protein 6.1 gm/dL (6.4-8.2)
[2017-01-28] MEDS: Sodium Chloride 0.9% 1000 ML 1,000 ML IV SCH (07:57)
[2017-01-28] MEDS: Carafate 1 GM PO SCH (07:58)
[2017-01-28 08:16] VITALS: BP 100/57; PULSE 73; O2SAT 94
--- NOTE | 2017-01-28 08:16 | PCM.DS ---
Discharge Summary Date of Admission: 01/26/17 14:40 Admitting Physician: WING MCLAUGHLIN Primary Care Provider: [facility] Allergies Allergies No Known Drug Allergies Allergy (Verified 01/26/17 12:05) Hospital Summary - Hospital Course Hospital Course: patient doing well s/p transfusion, hx of anemia. has a complex surgical history with a history of colon cancer. he has stable h/h post-transfusion. tolerating a regular diet and has no complaints - Vitals & Intake/Output Vital Signs: Vital Signs Temperature 98.1 F 01/28/17 04:00 Pulse Rate 65 01/28/17 05:45 Respiratory Rate 17 01/28/17 05:45 Blood Pressure 89/50 01/28/17 05:45 O2 Sat by Pulse Oximetry 95 01/28/17 05:45 Oxygen-Last Documented O2 Percentage 3 Liters = 32% Intake & Output: Intake & Output 01/25/17 01/26/17 01/27/17 01/28/17 11:59 11:59 11:59 11:59 Intake Total 1154 3995 Output Total 1250 3750 Balance -96 245 Weight 75.977 kg - Lab Result Diagrams: 01/28/17 05:10 01/28/17 05:10 Lab Results-Last 24 Hrs: Lab Results-Last 24 Hours 01/28/17 01/28/17 Range/Units 05:10 05:10 WBC 7.4 (4.0-10.5) K/mm3 RBC 3.18 L (4.1-5.6) M/mm3 Hgb 9.3 L (12.5-18.0) gm/dl Hct 29.2 L (42-50) % MCV 91.8 (78-100) fl MCH 29.2 (26-32) pg MCHC 31.8 L (32-36) g/dl RDW 14.8 H (11.5-14.0) % Plt Count 274 (150-450) K/mm3 MPV 8.7 (6-9.5) fl Gran % 73.8 H (36.0-66.0) % Lymphocytes % 13.3 L (24.0-44.0) % Monocytes % 9.5 (0.0-12.0) % Eosinophils % 3.3 (0.00-5.0) % Basophils % 0.1 (0.0-0.4) % Basophils # 0.01 (0-0.4) Sodium 140 (136-145) mEq/L Potassium 4.1 (3.5-5.1) mEq/L Chloride 105 (98-107) mEq/L Carbon Dioxide 26.9 (21-32) mEq/L Anion Gap 12.2 (5-15) MEQ/L BUN 49 H (9-20) mg/dL Creatinine 1.91 H (0.55-1.30) mg/dl Estimated GFR 37 ML/MIN Glucose 87 (70-110) MG/DL Calcium 8.9 (8.5-10.1) mg/dL Total Bilirubin 0.30 (0.2-1.0) mg/dL AST 21 (15-37) U/L ALT 21 (12-78) U/L Alkaline Phosphatase 98 (46-116) U/L Serum Total Protein 6.1 L (6.4-8.2) gm/dL Albumin 2.0 L (3.4-5.0) g/dL Discharge Exam General Appearance: no apparent distress, alert Respiratory Exam: normal breath sounds, lungs clear, No respiratory distress Cardiovascular Exam: regular rate/rhythm, normal heart sounds Gastrointestinal/Abdomen Exam: soft, normal bowel sounds, other (ostomy with dark stool, pink and viable) Extremity Exam: normal inspection, normal range of motion Final Diagnosis/Problem List - Final Discharge Diagnosis/Problem (1) Anemia Current Visit: Yes Status: Acute Assessment & Plan: continue iron supplement (2) GI bleeding Current Visit: Yes Status: Acute Assessment & Plan: increase protonix and follow h/h at [place] (3) Hx of malignant neoplasm of colon Current Visit: Yes Status: Acute (4) CKD (chronic kidney disease) Current Visit: No Status: Acute (5) Dehydration Current Visit: No Status: Acute - Discharge Disposition: Home, Self-Care Condition: Good Prescriptions: New Famotidine [Pepcid] 40 mg PO DAILY #0 tablet Continue Allopurinol 300 mg [Zyloprim 300 mg] 300 mg PO DAILY Ferrous Sulfate 325 mg [Feosol 325 mg] 325 mg PO TID #0 tablet Hydrocodone Bit/Acetaminophen [[place] 10-325 Tablet] 10 mg PO TID PANTOPRAZOLE 40 mg Tablet [Protonix 40MG Tablet] 40 mg PO BID Mirtazapine [Remeron] 15 mg PO HS Fluoxetine HCl 10 mg [Prozac 10 mg] 10 mg PO DAILY Polyethylene Glycol 3350 [Miralax Powder] 17 gm PO DAILY Melatonin/Pyridoxine HCl (B6) [Melatonin 1 mg Tablet] 4 each PO HS Magnesium Oxide [Magnesium] 400 mg PO DAILY Levothyroxine Sodium 150 Mcg [Synthroid 150 Mcg] 150 mcg PO DAILY Acetaminophen [Tylenol] 650 mg PO Q4H PRN PRN Reason: Pain Hydrocodone Bit/Acetaminophen [[place] 5-325 Tablet] 1 each PO Q4H PRN PRN Reason: Pain Magnesium Hydroxide [Milk of Magnesia] 5 ml PO DAILY PRN PRN Reason: Constipation Docusate Sodium 100 mg [Colace 100 MG] 100 mg PO Q12H PRN PRN PRN Reason: Constipation Sucralfate 1 gm [Carafate 1 GM] 1 g PO QID Calcium Carbonate/Vitamin D3 [[place] 500-Vit D3 200 Tablet] 1 each PO DAILY Dronabinol [Marinol] 2.5 mg PO BID Ondansetron [Zofran Odt] 4 mg PO Q4H Additional Instructions: check cbc and cmp on Wednesday02/01/17 continue home meds, add pepcid 40mg daily Follow up with: MAGDALENE ZEE [Primary Care Provider] - Forms: Patient Portal Information
[2017-01-28] MEDS: Protonix 40MG Tablet PO SCH (09:32)
[2017-01-28] MEDS: Calcium 500MG W/Vit D Tablet PO SCH (09:32)
[2017-01-28] MEDS: Norco 10/325 MG Tablet PO SCH (09:32)
[2017-01-28] MEDS: MAG-OX 400 PO SCH (09:32)
[2017-01-28] MEDS: ZYLOPRIM 300 MG PO SCH (09:32)
[2017-01-28] MEDS: SYNTHROID 150 MCG PO SCH (09:32)
[2017-01-28] MEDS: FEOSOL 325 MG PO SCH (09:32)
[2017-01-28] MEDS: PROZAC 10 MG PO SCH (09:33)
[2017-01-28] MEDS: Miralax Powder 17GM PACKET PO SCH (09:33)
== END 2017-01-28 10:47 ==
LOC: ED 11:38 → MED SURG 14:40
PROVIDERS: ADMIT Family Medicine; ATTEND Family Medicine
DX: D64.9 Anemia, unspecified (principal); K92.2 Gastrointestinal hemorrhage, unspecified; Z85.038 Personal history of other malignant neoplasm of large intestine; N18.9 Chronic kidney disease, unspecified; E86.0 Dehydration; E05.90 Thyrotoxicosis, unspecified without thyrotoxic crisis or storm; M19.90 Unspecified osteoarthritis, unspecified site; K63.5 Polyp of colon; Z93.3 Colostomy status
CPT/HCPCS: 96374; 99285; 36000; 96360; 96361; 93005; 85610; 85730; 36415 ×3; 82272; 85025 ×3; 80053 ×3; 86850; 86900; 86901; 86922; 71010; 83605; P9016; 36430; G0378; J1642; Q0162; A9270-GY

== ENCOUNTER 2017-02-27 13:05 | Emergency (ER) | payer MEDICARE, OTHER ==
[2017-02-27] MEDS ORDERED: Pepcid 20 MG VIAL IV ONE ×2 (13:28→13:34)
[2017-02-27] MEDS ORDERED: Sodium Chloride 0.9% 1000 ML 1,000 ML IV SCH ×2 (13:30→15:45)
[2017-02-27] MEDS ORDERED: Sodium Chloride 0.9% 1000 ML 1,000 ML ONE (13:34)
--- NOTE | 2017-02-27 13:34 | ERPHSYRPT ---
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 Triage Nursing Assessment: ARRIVES PER EMS COT. SKIN W/D, COLOR SALLOW. HX COLON CANCER AND HAS COLOSTOMY AND UROSTOMY. ABD SOFT, C/O CRAMPING. STATES HAS BEEN CONSTIPATED. Physician History: CC: 71 y/o patient of dr Aranda with hx of colon ca. He had large surgery in [facility] at [facility] and has ostomy, urostomy, feeding tube. He states minimal dark stool for the past 4 days, vomiting, and cramping abdominal pain. No fever or chills. No chest pain. Symptoms moderately severe. Timing/Duration: day(s) (4) Allergies/Adverse Reactions: No Known Drug Allergies Allergy (Verified 01/26/17 12:05) Home Medications: Allopurinol 300 mg [Zyloprim 300 mg] 300 mg PO DAILY 01/20/12 [History] Acetaminophen [Tylenol] 650 mg PO Q4H PRN 01/26/17 [History] Calcium Carbonate/Vitamin D3 [[place] 500-Vit D3 200 Tablet] 1 each PO DAILY 01/26 [History] Docusate Sodium 100 mg [Colace 100 MG] 100 mg PO DAILY PRN PRN 01/26/17 [ History] Dronabinol [Marinol] 2.5 mg PO BID 01/26/17 [History] Fluoxetine HCl 10 mg [Prozac 10 mg] 10 mg PO DAILY 01/26/17 [History] Hydrocodone Bit/Acetaminophen [[place] 5-325 Tablet] 1 each PO Q4H PRN 01/26/17 [ History] Levothyroxine Sodium 150 Mcg [Synthroid 150 Mcg] 150 mcg PO DAILY 01/26/17 [History] Magnesium Hydroxide [Milk of Magnesia] 5 ml PO DAILY PRN 01/26/17 [History] Magnesium Oxide [Magnesium] 400 mg PO DAILY 01/26/17 [History] Melatonin/Pyridoxine HCl (B6) [Melatonin 1 mg Tablet] 4 each PO HS 01/26/17 [ History] Ondansetron [Zofran Odt] 4 mg PO Q4H 01/26/17 [History] PANTOPRAZOLE 40 mg Tablet [Protonix 40MG Tablet] 40 mg PO BID 01/26/17 [ History] Polyethylene Glycol 3350 [Miralax Powder] 17 gm PO DAILY 01/26/17 [History] Sucralfate 1 gm [Carafate 1 GM] 1 g PO QID 01/26/17 [History] Pyridoxine HCl [Vitamin B-6] 100 mg PO DAILY 02/27/17 [History] Hx Tetanus, Diphtheria Vaccination/Date Given: No (UNKNOWN) Hx Influenza Vaccination/Date Given: No Hx Pneumococcal Vaccination/Date Given: Yes - Review of Systems Constitutional: Fatigue, Malaise, Weakness, No Fever, No Chills Eyes: No Symptoms Ears, Nose, & Throat: No Symptoms Respiratory: No Cough, No Dyspnea Cardiac: No Chest Pain Abdominal/Gastrointestinal: Abdominal Pain (cramping), Nausea, Vomiting, Constipation, No Diarrhea Skin: No Rash Neurological: No Focal Weakness, No Headache, No Parasthesia All Other Systems: Reviewed and Negative - Past Medical History Pertinent Past Medical History: Yes Neurological History: No Pertinent History ENT History: No Pertinent History Cardiac History: No Pertinent History Respiratory History: No Pertinent History Endocrine Medical History: Hyperthyroidism, Other Musculoskeletal History: Arthritis GI Medical History: Colorectal Cancer, Polyps History: No Pertinent History Psycho-Social History: No Pertinent History Male Reproductive Disorders: No Pertinent History Other Medical History: gout,thyroid removed,colon cancer hx chemo and radiation. 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 DVT to left leg 2013. UROSTOMY,COLOSTOMY,GTUBE - Past Surgical History Past Surgical History: Yes Neuro Surgical History: No Pertinent History Cardiac: No Pertinent History Respiratory: No Pertinent History Gastrointestinal: Bowel Surgery, Colon Resection Genitourinary: No Pertinent History Musculoskeletal: Orthopedic Surgery Male Surgical History: Prostate Surgery Other Surgical History: port a cath, 3 colon resections,laminiectomy,3 knee scopes, rt hand thumb surgery, states prostate "zapped" Helop apr.22. - Social History Smoking Status: Former smoker How long have you smoked: 15 Exposure to second hand smoke: Yes Drug Use: none Patient Lives Alone: No - Nursing Vital Signs Nursing Vital Signs: Initial Vital Signs Temperature 97 F 02/27/17 13:07 Pulse Rate 112 H 02/27/17 13:07 Respiratory Rate 18 02/27/17 13:07 Blood Pressure 122/79 02/27/17 13:07 O2 Sat by Pulse Oximetry 98 02/27/17 13:07 Pain Scale Pain Intensity 6 - Physical Exam General Appearance: alert Eye Exam: PERRL/EOMI Ears, Nose, Throat Exam: dry mucous membranes Neck Exam: supple Respiratory Exam: diminished breath sounds Cardiovascular Exam: regular rate/rhythm Gastrointestinal/Abdomen Exam: soft (scaphoid, dark stool smeared at ostomy, nondistended abdomen) Male Genitalia Exam: normal genitalia Extremity Exam: normal inspection, No pedal edema Neurologic Exam: alert, oriented x 3, cooperative, sensation nml, No motor deficits Skin Exam: warm, dry, other (sallow appearing) SpO2 Interpretation: normal SpO2: 98 Oxygen Delivery: Nasal Cannula - Course Nursing assessment & vital signs reviewed: Yes EKG Interpreted by Me: RATE (97), Sinus Rhythm, NORMAL AXIS, 1st degree AV Block , NORMAL QRS, NORMAL ST-T Ordered Tests: Active Orders 24 hr Category Date Time Status EKG-ER Only STAT Care 02/27/17 13:28 Active IV Insertion STAT Care 02/27/17 13:28 Active NPO (ED) STAT Care 02/27/17 13:28 Active ABDOMEN AND PELVIS W/0 CONTRAS [CT] Stat Exams 02/27/17 13:28 Taken CHEST 1 VIEW (PORTABLE) Stat Exams 02/27/17 13:28 Taken BLOOD CULTURE Stat Lab 02/27/17 13:47 Received CBC W DIFF Stat Lab 02/27/17 13:55 Completed CMP Stat Lab 02/27/17 13:55 Completed LIPASE Stat Lab 02/27/17 13:55 Completed Lactic Acid Stat Lab 02/27/17 13:28 Completed Lactic Acid Stat Lab 02/27/17 15:44 Results Manual Differential NC Stat Lab 02/27/17 13:55 Completed Occult Blood,Stool Other Stat Lab 02/27/17 14:02 Completed PROTIME WITH INR Stat Lab 02/27/17 13:55 Completed PTT Stat Lab 02/27/17 13:55 Completed TROPONIN Q3H Lab 02/27/17 13:50 Completed TROPONIN Q3H Lab 02/27/17 16:30 Ordered TROPONIN Q3H Lab 02/27/17 19:30 Ordered TROPONIN Q3H Lab 02/27/17 22:30 Ordered TROPONIN Q3H Lab 02/28/17 01:30 Ordered VENOUS BLOOD GAS Urgent Lab 02/27/17 13:47 Completed Respiratory Nebulizer STAT RT 02/27/17 16:05 Active Medication Summary Generic Name Dose Route Start Last Admin Trade Name Joriq PRN Reason Stop Dose Admin Albuterol Sulfate 2.5 mg 02/27/17 15:56 Proventil 2.5 Mg/3 Ml Neb IH 02/27/17 15:57 STAT ONE Dextrose 50 ml 02/27/17 15:56 D50w 50 Ml Abboject IV 02/27/17 15:57 STAT ONE Sodium Chloride 1,000 mls @ 100 mls/hr 02/27/17 13:30 02/27/17 13:51 Sodium Chloride 0.9% 1000 Ml IV 03/29/17 13:29 100 mls/hr .Q10H SAMUEL Administration Sodium Chloride 1,000 mls @ 200 mls/hr 02/27/17 15:45 02/27/17 15:52 Sodium Chloride 0.9% 1000 Ml IV 03/29/17 15:44 200 mls/hr .Q5H SAMUEL Administration Piperacillin Sod/Tazobactam Sod 3.375 gm in 100 mls @ 200 mls/hr 02/27/17 15: 42 02/27/17 15:52 Zosyn 3.375gm/100 Ml D5w IV 02/27/17 16:11 200 mls/hr STAT STA Administration Dextrose/Sodium Chloride 1,000 mls @ 100 mls/hr 02/27/17 16:30 Dextrose 5%-Ns Iv Solution 1000 Ml IV 03/29/17 16:29 .Q10H SAMUEL Insulin Human Regular 10 unit 02/27/17 15:56 Novolin R IV 02/27/17 15:57 STAT ONE Sodium Bicarbonate 50 meq 02/27/17 15:56 Sodium Bicarbonate 50 Meq/50 Ml Abboject IV 02/27/17 15:57 STAT ONE Discontinued Medications Generic Name Dose Route Start Last Admin Trade Name Joriq PRN Reason Stop Dose Admin Diphenhydramine HCl 25 mg 02/27/17 15:54 02/27/17 16:03 Benadryl 50 Mg/Ml IV 02/27/17 15:55 25 mg STAT ONE Administration Diphenhydramine HCl Confirm 02/27/17 16:00 Benadryl 50 Mg/Ml Administered 02/27/17 16:01 Dose 50 mg .ROUTE .STK-MED ONE Famotidine 20 mg 02/27/17 13:28 02/27/17 13:51 Pepcid 20 Mg Vial IV 02/27/17 13:29 20 mg STAT ONE Administration Famotidine Confirm 02/27/17 13:34 Pepcid 20 Mg Vial Administered 02/27/17 13:35 Dose 20 mg IV .STK-MED ONE Hydromorphone HCl 0.5 mg 02/27/17 15:54 02/27/17 16:03 Hydromorphone 1 Mg/Ml Ampule IV 02/27/17 15:55 0.5 mg STAT ONE Administration Hydromorphone HCl Confirm 02/27/17 16:00 Hydromorphone 1 Mg/Ml Ampule Administered 02/27/17 16:01 Dose 1 mg .ROUTE .STK-MED ONE Piperacillin Sod/Tazobactam Sod Confirm 02/27/17 15:45 Zosyn 3.375gm/100 Ml D5w Administered 02/27/17 15:46 Dose 3.375 gm in 100 mls @ ud IV .STK-MED ONE Lab/Rad Data: Laboratory Result Diagrams 02/27/17 13:55 02/27/17 13:55 Laboratory Results 02/27/17 02/27/17 02/27/17 Range/Units 15:44 14:02 13:55 WBC (4.0-10.5) K/mm3 RBC (4.1-5.6) M/mm3 Hgb (12.5-18.0) gm/dl Hct (42-50) % MCV (78-100) fl MCH (26-32) pg MCHC (32-36) g/dl RDW (11.5-14.0) % Plt Count (150-450) K/mm3 MPV (6-9.5) fl INR 1.21 (0.8-3.0) APTT 40.8 H (24.1-36.1) SECONDS VBG pH (7.32-7.42) VBG pCO2 at Pat Temp (42-55) mm/Hg VBG pO2 at Pat Temp (25-40) mm/Hg VBG HCO3 (22-28) meq/L VBG O2 Sat (Monserrat) (95-100) VBG Base Excess (-2.0-2.0) VBG Hemoglobin VBG Carboxyhemoglobin (0.0-6.9) % T HGB POC Potassium (3.5-5.1) Sodium (136-145) mEq/L Potassium (3.5-5.1) mEq/L Chloride (98-107) mEq/L Carbon Dioxide (21-32) mEq/L Anion Gap (5-15) MEQ/L BUN (9-20) mg/dL Creatinine (0.55-1.30) mg/dl Estimated GFR ML/MIN Glucose (70-110) MG/DL Lactic Acid 2.7 H (0.4-2.0) Calcium (8.5-10.1) mg/dL Total Bilirubin (0.2-1.0) mg/dL AST (15-37) U/L ALT (12-78) U/L Alkaline Phosphatase (46-116) U/L Troponin I (0.000-0.056) ng/ml Serum Total Protein (6.4-8.2) gm/dL Albumin (3.4-5.0) g/dL Lipase (73-393) U/L Stool Occult Blood POSITIVE (Negative) 02/27/17 02/27/17 02/27/17 Range/Units 13:55 13:55 13:50 WBC 12.2 H (4.0-10.5) K/mm3 RBC 4.87 (4.1-5.6) M/mm3 Hgb 13.9 (12.5-18.0) gm/dl Hct 41.5 L (42-50) % MCV 85.2 (78-100) fl MCH 28.5 (26-32) pg MCHC 33.5 (32-36) g/dl RDW 14.8 H (11.5-14.0) % Plt Count 477 H (150-450) K/mm3 MPV 9.0 (6-9.5) fl INR (0.8-3.0) APTT (24.1-36.1) SECONDS VBG pH (7.32-7.42) VBG pCO2 at Pat Temp (42-55) mm/Hg VBG pO2 at Pat Temp (25-40) mm/Hg VBG HCO3 (22-28) meq/L VBG O2 Sat (Monserrat) (95-100) VBG Base Excess (-2.0-2.0) VBG Hemoglobin VBG Carboxyhemoglobin (0.0-6.9) % T HGB POC Potassium (3.5-5.1) Sodium 125 L (136-145) mEq/L Potassium 6.0 H* (3.5-5.1) mEq/L Chloride 93 L (98-107) mEq/L Carbon Dioxide 17.4 L (21-32) mEq/L Anion Gap 21.0 H (5-15) MEQ/L BUN 122 H (9-20) mg/dL Creatinine 3.35 H (0.55-1.30) mg/dl Estimated GFR 19 ML/MIN Glucose 129 H (70-110) MG/DL Lactic Acid (0.4-2.0) Calcium 11.5 H (8.5-10.1) mg/dL Total Bilirubin 0.30 (0.2-1.0) mg/dL AST 15 (15-37) U/L ALT 15 (12-78) U/L Alkaline Phosphatase 143 H (46-116) U/L Troponin I < 0.017 (0.000-0.056) ng/ml Serum Total Protein 8.4 H (6.4-8.2) gm/dL Albumin 3.3 L (3.4-5.0) g/dL Lipase 128 (73-393) U/L Stool Occult Blood (Negative) 02/27/17 02/27/17 Range/Units 13:47 13:28 WBC (4.0-10.5) K/mm3 RBC (4.1-5.6) M/mm3 Hgb (12.5-18.0) gm/dl Hct (42-50) % MCV (78-100) fl MCH (26-32) pg MCHC (32-36) g/dl RDW (11.5-14.0) % Plt Count (150-450) K/mm3 MPV (6-9.5) fl INR (0.8-3.0) APTT (24.1-36.1) SECONDS VBG pH 7.23 L* (7.32-7.42) VBG pCO2 at Pat Temp 40 L (42-55) mm/Hg VBG pO2 at Pat Temp 17 L (25-40) mm/Hg VBG HCO3 16.8 L* (22-28) meq/L VBG O2 Sat (Monserrat) 27.0 L (95-100) VBG Base Excess -10.2 L (-2.0-2.0) VBG Hemoglobin 14.2 VBG Carboxyhemoglobin 0.0 (0.0-6.9) % T HGB POC Potassium 6.0 H* (3.5-5.1) Sodium (136-145) mEq/L Potassium (3.5-5.1) mEq/L Chloride (98-107) mEq/L Carbon Dioxide (21-32) mEq/L Anion Gap (5-15) MEQ/L BUN (9-20) mg/dL Creatinine (0.55-1.30) mg/dl Estimated GFR ML/MIN Glucose (70-110) MG/DL Lactic Acid 2.4 H (0.4-2.0) Calcium (8.5-10.1) mg/dL Total Bilirubin (0.2-1.0) mg/dL AST (15-37) U/L ALT (12-78) U/L Alkaline Phosphatase (46-116) U/L Troponin I (0.000-0.056) ng/ml Serum Total Protein (6.4-8.2) gm/dL Albumin (3.4-5.0) g/dL Lipase (73-393) U/L Stool Occult Blood (Negative) - Progress Progress Note: 02/27/17 16:[address] abd/pelvis: VRC: Possible presacral abscess, possible bowel obstruction, pulmonary nodules. Pt had most recent hospitalizations at [facility]. Surgeon Dr Troy Finch. Patient agrees for transfer back there for continued care. He has new hyperkalemia. RIKKI. He has bowel obstr. Condition fair. Spoke to Dr Camp who accepts in transfer to hospitalist service. Will treat K with bicarb, insulin, alb. IVF and abtx given. Counseled pt/family regarding: lab results, diagnosis, need for follow-up, rad results - Departure Time of Disposition: 16:09 Departure Disposition: Transfer Clinical Impression: Bowel obstruction, History of colon cancer, Hyperkalemia, Pulmonary nodules Condition: Fair Critical Care Time: Yes Critical Care Time(excluding separately billable procedures): 30-74 minutes
[2017-02-27 13:44] LABS: Lactic Acid 2.4 (0.4-2.0)
[2017-02-27 13:47] LABS: VBG BASE EXCESS -10.2 (-2.0-2.0); VBG HCO3- 16.8 meq/L (22-28); VBG HEMOGLOBIN 14.2
[2017-02-27 13:48] LABS: VBG pH 7.23 (7.32-7.42)
[2017-02-27 14:01] LABS: Mean Cell Volume 85.2 fl (78-100); Mean Corpuscular Hemoglobin 28.5 pg (26-32); Platelet Count 477 K/mm3 (150-450); Red Blood Count 4.87 M/mm3 (4.1-5.6); Red Cell Distribution Width 14.8 % (11.5-14.0); White Blood Count 12.2 K/mm3 (4.0-10.5)
[2017-02-27 14:18] LABS: ALBUMIN 3.3 g/dL (3.4-5.0); BILIRUBIN,TOTAL 0.3 mg/dL (0.2-1.0); Carbon Dioxide 17.4 mEq/L (21-32); Total Protein 8.4 gm/dL (6.4-8.2)
[2017-02-27 14:21] LABS: INR 1.21 (0.8-3.0); PROTIME 13.7 SECONDS (8.83-12.87)
[2017-02-27 14:23] LABS: PTT 40.8 SECONDS (24.1-36.1)
[2017-02-27] MEDS ORDERED: Zosyn 3.375GM/100 Ml D5W 3.375 GM/100 ML IVPB IV STA (15:42)
[2017-02-27] MEDS ORDERED: Zosyn 3.375GM/100 Ml D5W 3.375 GM/100 ML IVPB IV ONE (15:45)
[2017-02-27] MEDS ORDERED: BENADRYL 50 MG/ML IV ONE (15:54)
[2017-02-27] MEDS ORDERED: Hydromorphone 1 mg/ml Ampule IV ONE (15:54)
[2017-02-27 15:55] LABS: Lactic Acid 2.7 (0.4-2.0)
[2017-02-27] MEDS ORDERED: PROVENTIL 2.5 MG/3 ML NEB IH ONE ×2 (15:56→16:11)
[2017-02-27] MEDS ORDERED: D50W 50 ml Abboject IV ONE ×2 (15:56→16:23)
[2017-02-27] MEDS ORDERED: SODIUM BICARBONATE 50 MEQ/50 ML ABBOJECT IV ONE ×2 (15:56→16:23)
[2017-02-27] MEDS ORDERED: NovoLIN R IV ONE (15:56)
[2017-02-27] MEDS ORDERED: Hydromorphone 1 mg/ml Ampule ONE (16:00)
[2017-02-27] MEDS ORDERED: BENADRYL 50 MG/ML ONE (16:00)
[2017-02-27] MEDS ORDERED: NovoLIN R ONE (16:23)
[2017-02-27] MEDS ORDERED: Dextrose 5%-NS IV Solution 1000 ML 1,000 ML IV ONE (16:23)
[2017-02-27] MEDS ORDERED: Dextrose 5%-NS IV Solution 1000 ML 1,000 ML IV SCH (16:30)
[2017-02-27 16:38] LABS: ANISOCYTOSIS 1+; Platelet Estimate INCREASED (NORMAL); Total Cells Counted 100
[2017-02-27 17:22] VITALS: BP 103/73; PULSE 100; O2SAT 99
--- NOTE | 2017-02-27 22:40 | XRAY ---
Indication: Abdominal pain and vomiting. History of colon cancer. Comparison: January 26, 2017. Portable chest remains hyperinflated and clear. Heart is not enlarged with stable left-sided Port-A-Cath. Bony thorax intact. No new/acute findings.
--- NOTE | 2017-02-27 22:41 | XRAY ---
Indication: Lower abdominal pain and vomiting. History of colon cancer with colostomy and urostomy. Multiple contiguous axial images obtained through the abdomen and pelvis without contrast as ordered. Comparison: 08/12/16. Lung bases again demonstrates tiny noncalcified subpleural nodules bilaterally. New 4 mm right posterior gutter subpleural noncalcified nodule (image 17). Heart is not enlarged. Again PEG tube with the balloon tip in the antral portion of the stomach lumen and previous right hemicolectomy with left lower quadrant diverting colostomy. Noncontrasted stomach and bowel loops appear nonobstructed. Previous posterior pelvic fluid collection has increased today measuring at least 9 x 4.2 x 5.3 cm again with tiny air bubbles concerning for abscess. Urinary bladder again surgically absent with stable right lower quadrant ileoconduit and eventually exiting via right lower quadrant urostomy. Both kidneys now demonstrate nonobstructing bilateral renal microcalculi. Remaining liver, gallbladder, pancreas, spleen, adrenal glands, and kidneys appear unremarkable for noncontrast exam. Minimal aortic calcifications without AAA. Osseous structures intact with mild spinal degenerative changes. Impression: 1. Posterior pelvic fluid collection increased in size again demonstrating tiny air bubbles concerning for abscess. 2. Stable postsurgical changes including partial colectomy with diverting left lower quadrant colostomy and PEG tube in situ. 3. Stable cystectomy with right lower quadrant ileoconduit. New nonobstructing bilateral renal microcalculi. 4. New indeterminate 4 mm noncalcified subpleural nodule in the right lung base with stable micronodule in each lung base. Comment: Preliminary interpretation was made by [facility]. No critical discrepancy. CTDI 13.44
== END 2017-02-27 17:23 | disposition short-term general hospital (02) ==
LOC: ED 13:05
DX: K56.60 Unspecified intestinal obstruction (principal); E87.5 Hyperkalemia; R91.8 Other nonspecific abnormal finding of lung field; Z85.038 Personal history of other malignant neoplasm of large intestine; Z90.49 Acquired absence of other specified parts of digestive tract; Z93.6 Other artificial openings of urinary tract status; Z79.899 Other long term (current) drug therapy; R10.9 Unspecified abdominal pain; R11.2 Nausea with vomiting, unspecified
CPT/HCPCS: 36000; 36415; 71010; 74176; 80053; 82272; 82805; 83605; 83690; 84484; 85025; 85610; 85730; 87040; 93005; 94640; 96360; 96361; 96365; 96374; 96375; 99285; J1170; J1200; J2543; A9270-GY

== ENCOUNTER 2017-05-07 23:34 | Inpatient (IN) | payer MEDICARE, OTHER ==
[2017-05-07] MEDS ORDERED: Hydromorphone 1 mg/ml Ampule IV ONE (23:57)
[2017-05-07] MEDS ORDERED: Zofran 4 MG/2 ML VIAL IV ONE (23:57)
[2017-05-07] MEDS ORDERED: Sodium Chloride 0.9% 1000 ML 1,000 ML IV STA (23:57)
--- NOTE | 2017-05-07 23:57 | ERPHSYRPT ---
- History of Present Illness Time Seen by Provider: 05/07/17 23:53 Source: patient, EMS Exam Limitations: no limitations Physician History: The patient is a 71-year-old male brought in by ambulance from local [facility] where he complains that he is been vomiting tonight with abdominal pain. He has a history of colon cancer several abdominal surgeries. He has a colostomy, PEG tube, and urostomy. His colon cancer he believes has metastasized to his lungs. He denies fever or chills. His past medical history is significant for UTIs, malignant neoplasm of the colon, chronic kidney disease, DVTs, anemia, GI bleeds, hypothyroidism, GERD, and gout. Timing/Duration: today Severity: moderate Modifying Factors: Improves With: nothing Associated Symptoms: nausea, vomiting, abdominal pain Allergies/Adverse Reactions: No Known Drug Allergies Allergy (Verified 05/08/17 00:07) Home Medications: Allopurinol 300 mg [Zyloprim 300 mg] 300 mg PO DAILY 01/20/12 [History] Acetaminophen [Tylenol] 650 mg PO Q4H PRN 01/26/17 [History] Calcium Carbonate/Vitamin D3 [[place]ysco 500-Vit D3 200 Tablet] 1 each PO DAILY 01/26 [History] Docusate Sodium 100 mg [Colace 100 MG] 100 mg PO DAILY PRN PRN 01/26/17 [ History] Dronabinol [Marinol] 2.5 mg PO BID 01/26/17 [History] Fluoxetine HCl 10 mg [Prozac 10 mg] 10 mg PO DAILY 01/26/17 [History] Hydrocodone Bit/Acetaminophen [[place] 5-325 Tablet] 1 each PO Q4H PRN 01/26/17 [ History] Levothyroxine Sodium 150 Mcg [Synthroid 150 Mcg] 150 mcg PO DAILY 01/26/17 [History] Magnesium Hydroxide [Milk of Magnesia] 5 ml PO DAILY PRN 01/26/17 [History] Magnesium Oxide [Magnesium] 400 mg PO DAILY 01/26/17 [History] Melatonin/Pyridoxine HCl (B6) [Melatonin 1 mg Tablet] 4 each PO HS 01/26/17 [ History] Ondansetron [Zofran Odt] 4 mg PO Q4H 01/26/17 [History] PANTOPRAZOLE 40 mg Tablet [Protonix 40MG Tablet] 40 mg PO BID 01/26/17 [ History] Polyethylene Glycol 3350 [Miralax Powder] 17 gm PO DAILY 01/26/17 [History] Sucralfate 1 gm [Carafate 1 GM] 1 g PO QID 01/26/17 [History] Pyridoxine HCl [Vitamin B-6] 100 mg PO DAILY 02/27/17 [History] Hx Tetanus, Diphtheria Vaccination/Date Given: No (UNKNOWN) Hx Influenza Vaccination/Date Given: No Hx Pneumococcal Vaccination/Date Given: Yes - Review of Systems Constitutional: No Fever, No Chills Eyes: No Symptoms Ears, Nose, & Throat: No Symptoms Respiratory: No Cough, No Dyspnea Cardiac: No Chest Pain, No Edema, No Syncope Abdominal/Gastrointestinal: Abdominal Pain, Nausea, Vomiting Genitourinary Symptoms: No Dysuria Musculoskeletal: No Back Pain, No Neck Pain Skin: No Rash Neurological: No Dizziness, No Focal Weakness, No Sensory Changes Psychological: No Symptoms Endocrine: No Symptoms Hematologic/Lymphatic: No Symptoms Immunological/Allergic: No Symptoms All Other Systems: Reviewed and Negative - Past Medical History Pertinent Past Medical History: Yes Neurological History: No Pertinent History ENT History: No Pertinent History Cardiac History: No Pertinent History Respiratory History: No Pertinent History Endocrine Medical History: Hyperthyroidism, Other Musculoskeletal History: Arthritis GI Medical History: Colorectal Cancer, Polyps History: No Pertinent History Psycho-Social History: No Pertinent History Male Reproductive Disorders: No Pertinent History Other Medical History: gout,thyroid removed,colon cancer hx chemo and radiation. 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 DVT to left leg 2013. UROSTOMY,COLOSTOMY,GTUBE - Past Surgical History Past Surgical History: Yes Neuro Surgical History: No Pertinent History Cardiac: No Pertinent History Respiratory: No Pertinent History Gastrointestinal: Bowel Surgery, Colon Resection Genitourinary: No Pertinent History Musculoskeletal: Orthopedic Surgery Male Surgical History: Prostate Surgery Other Surgical History: port a cath, 3 colon resections,laminiectomy,3 knee scopes, rt hand thumb surgery, states prostate "zapped" Helop apr.22. - Social History Smoking Status: Former smoker How long have you smoked: 15 Exposure to second hand smoke: Yes Drug Use: none Patient Lives Alone: No - Nursing Vital Signs Nursing Vital Signs: Initial Vital Signs Temperature 98.3 F 05/07/17 23:49 Pulse Rate 120 H 05/07/17 23:49 Respiratory Rate 20 05/07/17 23:49 Blood Pressure 74/44 05/07/17 23:49 O2 Sat by Pulse Oximetry 96 05/07/17 23:49 Pain Scale Pain Intensity [] 10 Pain Intensity 2 - Physical Exam General Appearance: mild distress Eye Exam: PERRL/EOMI Ears, Nose, Throat Exam: normal ENT inspection, TMs normal, pharynx normal, moist mucous membranes Neck Exam: normal inspection, non-tender, supple, full range of motion Respiratory Exam: normal breath sounds, lungs clear, No respiratory distress Cardiovascular Exam: regular rate/rhythm, normal heart sounds, normal peripheral pulses Gastrointestinal/Abdomen Exam: soft, tenderness (epigastric) Rectal Exam: not done Back Exam: normal inspection, normal range of motion, No CVA tenderness, No vertebral tenderness Extremity Exam: normal inspection, normal range of motion, pelvis stable Neurologic Exam: alert, oriented x 3, cooperative, normal mood/affect, nml cerebellar function, nml station & gait, sensation nml, No motor deficits Skin Exam: normal color, warm, dry, No rash Lymphatic Exam: No adenopathy SpO2 Interpretation: normal SpO2: 96 Oxygen Delivery: Room Air - Radiology Exams Abdomen X-ray Interpretation: Interpreted by me, Other (colonic distension favoring ileus.) Ordered Tests: Active Orders 24 hr Category Date Time Status IV Insertion STAT Care 05/07/17 23:57 Active OBSTR/ACUTE ABDOMEN SERIES Stat Exams 05/07/17 23:58 Taken CBC W DIFF Stat Lab 05/07/17 23:55 Completed CMP Stat Lab 05/07/17 23:55 Completed LIPASE Stat Lab 05/07/17 23:55 Completed Manual Differential NC Stat Lab 05/07/17 23:55 Completed Medication Summary Discontinued Medications Generic Name Dose Route Start Last Admin Trade Name Freq PRN Reason Stop Dose Admin Hydromorphone HCl 2 mg 05/07/17 23:57 05/08/17 00:04 Hydromorphone 1 Mg/Ml Ampule IV 05/07/17 23:58 2 mg STAT ONE Administration Hydromorphone HCl Confirm 05/08/17 00:03 Hydromorphone 1 Mg/Ml Ampule Administered 10/14/17 00:04 Dose 2 mg .ROUTE .STK-MED ONE Sodium Chloride 1,000 mls @ 999 mls/hr 05/07/17 23:57 05/08/17 00:04 Sodium Chloride 0.9% 1000 Ml IV 05/08/17 00:57 999 mls/hr .Q1H1M STA Administration Sodium Chloride Confirm 05/08/17 00:03 Sodium Chloride 0.9% 1000 Ml Administered 05/08/17 00:04 Dose 1,000 mls @ ud .ROUTE .STK-MED ONE Ondansetron HCl 4 mg 05/07/17 23:57 05/08/17 00:04 Zofran 4 Mg/2 Ml Vial IV 05/07/17 23:58 4 mg STAT ONE Administration Ondansetron HCl Confirm 05/08/17 00:03 Zofran 4 Mg/2 Ml Vial Administered 05/08/17 00:04 Dose 4 mg .ROUTE .STK-MED ONE Potassium Chloride 20 meq 05/08/17 01:19 05/08/17 01:23 Klor Con 10 Meq PO 05/08/17 01:20 20 meq STAT ONE Administration Potassium Chloride Confirm 05/08/17 01:23 Klor Con 10 Meq Administered 05/08/17 01:24 Dose 20 meq PO .STK-MED ONE Lab/Rad Data: Laboratory Result Diagrams 05/07/17 23:55 05/07/17 23:55 Laboratory Results 05/07/17 05/07/17 05/07/17 Range/Units 23:55 23:55 00:08 WBC 15.3 H (4.0-10.5) K/mm3 RBC 2.73 L (4.1-5.6) M/mm3 Hgb 7.5 L (12.5-18.0) gm/dl Hct 24.7 L (42-50) % MCV 90.5 (78-100) fl MCH 27.4 (26-32) pg MCHC 30.4 L (32-36) g/dl RDW 15.4 H (11.5-14.0) % Plt Count 656 H (150-450) K/mm3 MPV 8.5 (6-9.5) fl Sodium 134 L (136-145) mEq/L Potassium 3.3 L (3.5-5.1) mEq/L Chloride 88 L (98-107) mEq/L Carbon Dioxide 38.4 H (21-32) mEq/L Anion Gap 10.9 (5-15) MEQ/L BUN 77 H (9-20) mg/dL Creatinine 2.29 H (0.55-1.30) mg/dl Estimated GFR 30 ML/MIN Glucose 111 H (70-110) MG/DL Lactic Acid 2.0 (0.4-2.0) Calcium 8.4 L (8.5-10.1) mg/dL Total Bilirubin 0.30 (0.2-1.0) mg/dL AST 15 (15-37) U/L ALT 10 L (12-78) U/L Alkaline Phosphatase 133 H (46-116) U/L Serum Total Protein 5.3 L (6.4-8.2) gm/dL Albumin 1.5 L (3.4-5.0) g/dL Lipase 54 L (73-393) U/L - Progress Progress: improved Discussed with : Latoya Will see patient in: hospital (observation) Counseled pt/family regarding: lab results, diagnosis, rad results - Departure Time of Disposition: 01:33 Departure Disposition: Observation (per DR Klein) Clinical Impression: Abdominal pain, Vomiting, Hypokalemia Condition: Stable Critical Care Time: No Referrals: MAGDALENE ZEE [Primary Care Provider] - Additional Instructions: Your being admitted per Dr. Klein for abdominal pain and vomiting.
[2017-05-08] MEDS ORDERED: Zofran 4 MG/2 ML VIAL ONE (00:03)
[2017-05-08] MEDS ORDERED: Sodium Chloride 0.9% 1000 ML 1,000 ML ONE ×2 (00:03→01:31)
[2017-05-08] MEDS ORDERED: Hydromorphone 1 mg/ml Ampule ONE (00:03)
[2017-05-08 00:07] LABS: Mean Cell Volume 90.5 fl (78-100); Mean Platelet Volume 8.5 fl (6-9.5); Platelet Count 656 K/mm3 (150-450); Red Blood Count 2.73 M/mm3 (4.1-5.6); Red Cell Distribution Width 15.4 % (11.5-14.0); White Blood Count 15.3 K/mm3 (4.0-10.5)
[2017-05-08 00:13] LABS: Mean Corpuscular Hemoglobin 27.4 pg (26-32)
[2017-05-08 00:33] LABS: ALBUMIN 1.5 g/dL (3.4-5.0); ANION GAP 10.9 MEQ/L (5-15); BILIRUBIN,TOTAL 0.3 mg/dL (0.2-1.0); Carbon Dioxide 38.4 mEq/L (21-32); Potassium 3.3 mEq/L (3.5-5.1); Total Protein 5.3 gm/dL (6.4-8.2)
[2017-05-08] MEDS ORDERED: Klor Con 10 MEQ PO ONE ×2 (01:19→01:23)
[2017-05-08] MEDS ORDERED: Sodium Chloride 0.9% 1000 ML 1,000 ML IV SCH (01:45)
[2017-05-08 02:03] LABS: Collection Type VOID
[2017-05-08 02:04] LABS: ADD URINE CULTURE? YES (NO); Bilirubin NEGATIVE (NEGATIVE); Blood 250 Ery/ul (0-5); COMPLETE URINE MICROSCOPIC? YES; Glucose NEGATIVE (NEGATIVE); Leukocyte Esterase 2+ (NEGATIVE)
[2017-05-08 02:05] LABS: Bacteria MANY /HPF (NEGATIVE); Epithelial Cells FEW /HPF (FEW); Mucus MANY /HPF (NEGATIVE); WBC >100 /HPF (0-5)
[2017-05-08] MEDS ORDERED: TYLENOL 325 MG PO PRN (02:08)
[2017-05-08] MEDS ORDERED: MORPHINE SULFATE 4 MG INJ IV PRN (02:08)
[2017-05-08] MEDS ORDERED: Zofran 4 MG/2 ML VIAL IV PRN (02:08)
[2017-05-08 02:47] LABS: ATYPICAL LYMPHS 2 %; Platelet Estimate INCREASED (NORMAL); Total Cells Counted 100
[2017-05-08 06:15] LABS: Mean Corpuscular Hemoglobin 27.3 pg (26-32); Mean Platelet Volume 8.5 fl (6-9.5); Platelet Count 563 K/mm3 (150-450); Red Blood Count 2.45 M/mm3 (4.1-5.6); Red Cell Distribution Width 15.5 % (11.5-14.0); White Blood Count 10.9 K/mm3 (4.0-10.5)
[2017-05-08 06:59] LABS: ANION GAP 5.7 MEQ/L (5-15); Carbon Dioxide 41.5 mEq/L (21-32); Potassium 3.8 mEq/L (3.5-5.1)
--- NOTE | 2017-05-08 07:34 | XRAY ---
Indication: Abdomen pain. Colostomy. Comparison: Portable chest February 27, 2017. 2 views of the abdomen demonstrates moderate air distended colon without fluid leveling, ileus versus mild/early obstruction. Right mid abdomen suture material. No free air. Solid organs obscured by overlying bowel gas. Osseous structures intact with mild osteopenia, and lower lumbar degenerative changes. Single AP chest demonstrates recent CT proven pulmonary nodules, largest in the left mid lung. No infiltrate, consolidation, or large effusion. Heart is not enlarged. Stable left-sided Port-A-Cath. Bony thorax intact again with mild osteopenia and degenerative changes. Impression: 1. Air distended colon, ileus versus mild/early obstruction. Correlate clinically. 2. CT proven bilateral pulmonary nodules worrisome for metastasis.
[2017-05-08] MEDS ORDERED: MILK OF MAGNESIA 30 ML PO PRN (08:44)
[2017-05-08] MEDS ORDERED: MEDICATION INTERVENTION MC PRN (08:54)
[2017-05-08 09:30] LABS: ANISOCYTOSIS 1+; Total Cells Counted 100
[2017-05-08 09:31] LABS: Platelet Estimate NORMAL (NORMAL); Toxic Granulation 1+
[2017-05-08] MEDS ORDERED: ENTERAL NUTRITION FORMULA G-TUBE SCH (10:00)
[2017-05-08] MEDS ORDERED: LACTOSE REDUCED FOOD PO SCH (10:00)
[2017-05-08] MEDS ORDERED: [UNRECOGNIZED DRUG - OTHER] G-TUBE SCH (10:00)
[2017-05-08] MEDS ORDERED: NON-FORMULARY ITEM (Levothyroxine Sodium [Synthroid] 175 MCG) PO SCH (10:00)
[2017-05-08] MEDS ORDERED: NON-FORMULARY ITEM (Ondansetron 4 MG) PO SCH (10:00)
[2017-05-08] MEDS ORDERED: POLYETHYLENE GLYCOL PO SCH (10:00)
[2017-05-08] MEDS: Calcium 500MG W/Vit D Tablet PO SCH ×2 (10:51→23:13)
[2017-05-08] MEDS: NEURONTIN 300 MG PO SCH ×3 (10:52→23:13)
[2017-05-08] MEDS: MAG-OX 400 PO SCH (10:52)
[2017-05-08] MEDS: NORCO 5/325 MG PO SCH ×4 (10:52→23:14)
[2017-05-08] MEDS: PROTONIX 40 MG IV IV SCH (10:52)
[2017-05-08] MEDS: Miralax Powder 17GM PACKET PO SCH (10:52)
[2017-05-08] MEDS: FEOSOL 325 MG PO SCH ×3 (10:52→23:13)
[2017-05-08] MEDS: SYNTHROID 100 MCG PO SCH (10:53)
[2017-05-08] MEDS: ZOFRAN ODT 4 MG PO SCH ×4 (10:53→23:14)
[2017-05-08] MEDS: VITAMIN B-1 100 MG PO SCH (10:53)
[2017-05-08] MEDS: SYNTHROID 75 MCG PO SCH (10:53)
[2017-05-08] MEDS: PROZAC 10 MG PO SCH (10:53)
[2017-05-08] MEDS: ZYLOPRIM 100 MG PO SCH (10:53)
[2017-05-08] MEDS: Carafate 1 GM PO SCH ×3 (11:04→23:13)
--- NOTE | 2017-05-08 13:55 | HP ---
CHIEF COMPLAINT: Abdominal pain. HISTORY OF PRESENT ILLNESS: The patient is a 71-year old white male patient with known metastatic colon cancer. He has ostomies, urostomy and colostomy. He reports he was having spasmodic pain that was intense. It would come on about every 5 minutes and he could not stand it any longer. He had taken his Vicodin, but had thrown it up, and therefore was sent to the emergency room for further evaluation and management. PAST MEDICAL HISTORY: Significant for the metastatic cancer. He has otherwise chronic kidney disease, stage 4, hypothyroid, GERD. MEDICATIONS: His medications at the long term presently are allopurinol 300 mg daily, Tylenol 650 mg p.r.n., docusate 100 mg b.i.d., Marinol 2.5 mg b.i.d., Prozac 10 mg a day, [place]ons 5/325 p.r.n., Synthroid 150 mcg a day. He takes Milk of Magnesium, melatonin, Zofran 4 mg as needed for nausea, pantoprazole 40 mg a day, polyethylene glycol, sulcrafate and vitamin D6. ALLERGIES: No known drug allergies. He currently resides in a local long term. PHYSICAL EXAMINATION: GENERAL: Reveals a disheveled-appearing 71-year-old white male in his words, "presently improved" from his abdominal pain aspect. VITAL SIGNS: On admission to the ER showed a temperature of 98.3, a pulse of 120, respiratory rate of 20, and blood pressure 74/44, O2 saturations 96%. HEENT: Normocephalic and atraumatic, pupils are equal, round, reactive to light, extraocular muscles intact. Oropharynx is dry. NECK: Supple without lymphadenopathy, thyromegaly or JVD. CHEST: Clear to auscultation, good air movement bilaterally. HEART: Regular rate and rhythm without murmurs, rubs or gallops. He does have a fork in the left chest area. ABDOMEN: He also has urostomies and ileostomies in place. EXTREMITIES: Without cyanosis, clubbing or edema. NEUROLOGIC: The patient is alert and oriented x3. LABS: His laboratory studies from the emergency room: X-rays showed distended colon, ileus versus early obstruction. CT scan pulmonary nodules worrisome for metastasis were present. His lactic acid was 2.0. His sugar was 111, BUN 77, creatinine 2.29, potassium was 2.3. Liver enzymes were essentially normal. Amylase and lipase were not elevated. His white count was 15,300, his hemoglobin was 7.5, his platelet count was 156,000. Urinalysis showed greater than 100 WBCs per high powered field, but the nitrite was negative. He had 25 to 50 RBC's per high powered field. ASSESSMENT: Patient with abdominal pain, possible obstruction. He has been admitted to the hospital for pain control and IV fluids and hopefully resolution of the new obstruction. He was also found to be profoundly anemic. We will recheck his CBC, type and crossmatch and transfuse for 2 units of packed RBC's. We will culture his urine with consideration of antibiotic treatments. We will heme test his stool to see if he is having GI blood loss. His stool is black, but he also is on iron.
[2017-05-08] MEDS ORDERED: NON-FORMULARY ITEM (Melatonin/Pyridoxine [Melatonin 5 Mg Tablet] 1 EACH) PO SCH (22:00)
[2017-05-08] MEDS: Sodium Chloride 0.9% 1000 ML 1,000 ML IV SCH (23:12)
[2017-05-08] MEDS: DESYREL 50 MG PO SCH (23:13)
[2017-05-09 05:43] LABS: Mean Cell Volume 88.9 fl (78-100); Mean Platelet Volume 8.6 fl (6-9.5); Platelet Count 454 K/mm3 (150-450); Red Blood Count 3.43 M/mm3 (4.1-5.6); Red Cell Distribution Width 14.9 % (11.5-14.0); White Blood Count 11.1 K/mm3 (4.0-10.5)
[2017-05-09 05:46] LABS: Mean Corpuscular Hemoglobin 28.2 pg (26-32)
[2017-05-09 06:04] LABS: ALBUMIN 1.2 g/dL (3.4-5.0); ALKALINE PHOSPHATASE 102 U/L (46-116); ANION GAP 9.1 MEQ/L (5-15); BLOOD UREA NITROGEN 58 mg/dL (9-20); CHLORIDE 96 mEq/L (98-107); Carbon Dioxide 33.6 mEq/L (21-32); Glucose 83 MG/DL (70-110); Potassium 3.6 mEq/L (3.5-5.1); SGOT/AST 13 U/L (15-37); SODIUM 135 mEq/L (136-145); Total Protein 5.4 gm/dL (6.4-8.2)
[2017-05-09 06:21] LABS: ANISOCYTOSIS 1+; Platelet Estimate NORMAL (NORMAL); Total Cells Counted 100; Toxic Granulation 1+
[2017-05-09 06:37] LABS: SGPT/ALT < 6 U/L (12-78)
[2017-05-09] MEDS: Sodium Chloride 0.9% 1000 ML 1,000 ML IV SCH ×2 (07:04→22:46)
[2017-05-09] MEDS: Carafate 1 GM PO SCH ×4 (07:05→22:51)
[2017-05-09] MEDS: Calcium 500MG W/Vit D Tablet PO SCH ×2 (09:56→22:42)
[2017-05-09] MEDS: FEOSOL 325 MG PO SCH ×3 (09:56→22:42)
[2017-05-09] MEDS: MAG-OX 400 PO SCH (09:56)
[2017-05-09] MEDS: PROTONIX 40 MG IV IV SCH (09:56)
[2017-05-09] MEDS: SYNTHROID 75 MCG PO SCH (09:56)
[2017-05-09] MEDS: SYNTHROID 100 MCG PO SCH (09:57)
[2017-05-09] MEDS: PROZAC 10 MG PO SCH (09:57)
[2017-05-09] MEDS: VITAMIN B-1 100 MG PO SCH (09:57)
[2017-05-09] MEDS: NORCO 5/325 MG PO SCH ×4 (09:57→22:41)
[2017-05-09] MEDS: Miralax Powder 17GM PACKET PO SCH (09:57)
[2017-05-09] MEDS: NEURONTIN 300 MG PO SCH ×3 (09:57→22:42)
[2017-05-09] MEDS: ZYLOPRIM 100 MG PO SCH (09:57)
[2017-05-09] MEDS: ZOFRAN ODT 4 MG PO SCH ×4 (09:58→22:43)
[2017-05-09] MEDS: DESYREL 50 MG PO SCH (22:42)
[2017-05-10 06:12] LABS: Mean Cell Volume 89.4 fl (78-100); Mean Platelet Volume 8.7 fl (6-9.5); Platelet Count 418 K/mm3 (150-450); Red Blood Count 3.22 M/mm3 (4.1-5.6); Red Cell Distribution Width 14.9 % (11.5-14.0); White Blood Count 10.4 K/mm3 (4.0-10.5)
[2017-05-10 06:16] LABS: Mean Corpuscular Hemoglobin 27.9 pg (26-32)
[2017-05-10 06:19] LABS: ALBUMIN 1.1 g/dL (3.4-5.0); ALKALINE PHOSPHATASE 92 U/L (46-116); ANION GAP 7.8 MEQ/L (5-15); BLOOD UREA NITROGEN 48 mg/dL (9-20); CHLORIDE 98 mEq/L (98-107); Carbon Dioxide 32.2 mEq/L (21-32); Glucose 83 MG/DL (70-110); Potassium 3.8 mEq/L (3.5-5.1); SGOT/AST 10 U/L (15-37); SODIUM 134 mEq/L (136-145); Total Protein 4.8 gm/dL (6.4-8.2)
[2017-05-10 06:28] LABS: SGPT/ALT < 6 U/L (12-78)
[2017-05-10 06:41] LABS: BAND 1 % (0.0-2.0); Total Cells Counted 100
[2017-05-10 06:42] LABS: ANISOCYTOSIS 1+; Platelet Estimate NORMAL (NORMAL); Poikilocytosis 1+
[2017-05-10 06:43] LABS: Polychromasia 1+
[2017-05-10] MEDS ORDERED: ROCEPHIN 1 Gm-D5w 50 ml Bag** 1 G/50 ML IVPB IV SCH (10:00)
[2017-05-10] MEDS: PROTONIX 40 MG IV IV SCH (10:12)
[2017-05-10] MEDS ORDERED: Lactated Ringers 1,000 ML IV ONE (11:54)
[2017-05-10] MEDS ORDERED: Lactated Ringers 1,000 ML IV SCH (12:00)
--- NOTE | 2017-05-10 13:05 | CONS ---
CONSULT DATE: 05/10/2017 HISTORY: A 71 year-old gentleman with advanced metastatic colon cancer and has some in his lungs. He had multiple bowel resections in the past. He had uroscopy, colonoscopy. He has been NPO. He denies any current blood thinner use. He did have urinary tract infection on admission. His hemoglobin was down to 6.7 at one point. He got a couple of units transfused and has been up in the 9 range since. White blood cell count 10.4, PLT 418,000. PAST MEDICAL HISTORY: Chronic renal disease, hypothyroidism, reflux. PAST SURGICAL HISTORY: Extensive abdominal surgeries in the past. He also had port placed in the past. FDC MEDICATIONS: Allopurinol, Tylenol, docusate, Prozac, [place], Synthroid, Zofran, Milk of Magnesia, melatonin, pantoprazole, sulcralfate, vitamin D. ALLERGIES: NKDA. SOCIAL HISTORY: No alcohol abuse. FAMILY HISTORY: Negative in regards to this specific problem. REVIEW OF SYSTEMS: Twelve systems reviewed per admission assessment. His last surgeries were done at [facility]. He had some nausea and vomiting prior to admission and some abdominal pain. He had discharge per his rectum and penis, he said. He does have history of lung metastasis. He has been NPO since yesterday. PHYSICAL EXAMINATION: GENERAL: A chronically ill gentleman. HEENT: Sclera nonicteric. NECK: No JVD. CHEST: Equal excursion, nonlabored breathing. CVS: Regular rate, rhythm and pulse. ABDOMEN: Soft. He has a colostomy on the left side and has urostomy on the right side. He has had gas and liquidy stool in his colostomy bag on the left. No peritoneal signs. EXTREMITIES: No edema. NEURO: Alert, moving extremities grossly symmetrically. IMPRESSION: Anemia, dark stools out of ostomy. His abdominal films question ileus although he had gas and stool coming out his ostomy. I had been out of town but it sounds they contacted the office requesting consideration of upper endoscopy for evaluation. This patient is no way a candidate for any abdominal operations here at this facility but the patient was discussed the options of upper endoscopy to evaluate for gastritis, esophagitis, ulcer disease or other etiology of his anemia, general risk of bleeding, infection, risk of bowel injury or perforation possibly open procedure, risk of ongoing morbidity, risk of missed or nondiagnosis or inability to diagnose the etiology of his aches and pains. He is agreeable at this time, will proceed when OR time is available for EGD possible biopsy in this unfortunate gentleman with poor fdc prognosis.
[2017-05-10] MEDS: PROZAC 10 MG PO SCH (13:39)
[2017-05-10] MEDS: NEURONTIN 300 MG PO SCH ×2 (13:39→15:13)
[2017-05-10] MEDS: ZOFRAN ODT 4 MG PO SCH ×2 (13:39→15:14)
[2017-05-10] MEDS: ZYLOPRIM 100 MG PO SCH (13:39)
[2017-05-10] MEDS: Calcium 500MG W/Vit D Tablet PO SCH (13:39)
[2017-05-10] MEDS: SYNTHROID 100 MCG PO SCH (13:39)
[2017-05-10] MEDS: Carafate 1 GM PO SCH ×2 (13:39→15:14)
[2017-05-10] MEDS: MAG-OX 400 PO SCH (13:39)
[2017-05-10] MEDS: VITAMIN B-1 100 MG PO SCH (13:39)
[2017-05-10] MEDS: FEOSOL 325 MG PO SCH (13:40)
[2017-05-10] MEDS: SYNTHROID 75 MCG PO SCH (13:40)
--- NOTE | 2017-05-10 14:32 | OP ---
SURGERY DATE/TIME: 05/10/2017 1250 PREOPERATIVE DIAGNOSIS: History of metastatic colon carcinoma status post multiple operations by Dr. Leggett as well as in [place], anemia, melena. History of nausea and vomiting, need for upper endoscopy. POSTOPERATIVE DIAGNOSIS: Minimal mild gastritis. No gross signs of any upper GI active bleeding. PROCEDURE: EGD with cold biopsy of the antrum to evaluate for Helicobacter pylori. SURGEON: Dr. Shon Mcfadden. ANESTHESIA: MAC. ESTIMATED BLOOD LOSS: Minimal. INDICATIONS: As noted above. Risks and benefits explained in detail and not limited to and consent obtained. DESCRIPTION OF PROCEDURE AND FINDINGS: The patient is taken to the operating room. MAC anesthesia introduced. After official time out and no disagreement with planned procedure, bite block positioned. Video gastroscope easily passed down the esophagus through the patent pylorus to the junction of the second and third portion of the duodenum. On withdrawal of the scope duodenum and duodenal bulb grossly unremarkable. No signs of any gross ulcers. No signs of any active bleedings anywhere in the visible upper GI tract at this point. The scope pulled back in the stomach. He had some minimal to mild gastritis. Cold is taken to evaluate for Helicobacter pylori. Good hemostasis noted otherwise there are no signs of any obvious ulcers. The patent bumper was in good position in the stomach. On retroflex there did not appear to be any significant hiatal hernia on retroflex. Gastroesophageal junction seemed to be snug against the scope. The scope straightened. Gastroesophageal junction noted to be about 40 cm. Z-line was fairly crisp. There was no evidence of any mass or ulcerations. No emilee esophagitis just 1 or 2 mm of possible early Morales's versus just normal variation. Again it was only 1 or 2 mm so it was insignificant in this gentleman to biopsy this area and create other bleeding sources in this gentleman with metastatic colon cancer with what sounds like lung metastases per report. The remainder of the esophagus was grossly unremarkable. There were no signs of any obvious masses or ulcers. No signs of active recent or old bleeding currently just mild gastritis. The scope withdrawn. The patient tolerated the procedure well. There was no family available to discuss the findings with.
[2017-05-10 15:08] VITALS: BP 83/50; PULSE 95; O2SAT 96
[2017-05-10] MEDS: NORCO 5/325 MG PO SCH (15:18)
[2017-05-10] MEDS: Miralax Powder 17GM PACKET PO SCH (15:20)
[2017-05-10] MEDS ORDERED: DIPRIVAN 200 MG/20 ML IV ONE (15:29)
== END 2017-05-10 15:30 | DRG 375 ==
LOC: ED 23:34 → MED SURG 05-08 01:59 → UNDOADMOB 05-08 01:59 → INTOOBSV 05-08 09:30 → OBSVTOIN 05-08 09:30 → MED SURG 05-09 09:30 → OBSVTOIN 05-09 09:30
PROVIDERS: ADMIT Family Medicine; ATTEND Family Medicine
PROC: 0DB78ZX Excision of Stomach, Pylorus, Via Natural or Artificial Opening Endoscopic, Diagnostic (ICD-10-PCS; principal; 2017-05-10)
DX: C18.9 Malignant neoplasm of colon, unspecified (principal); C78.00 Secondary malignant neoplasm of unspecified lung; N18.4 Chronic kidney disease, stage 4 (severe); K92.1 Melena; N39.0 Urinary tract infection, site not specified; D64.9 Anemia, unspecified; Z93.3 Colostomy status; E03.9 Hypothyroidism, unspecified; K21.9 Gastro-esophageal reflux disease without esophagitis; Z98.890 Other specified postprocedural states; K29.70 Gastritis, unspecified, without bleeding
CPT/HCPCS: 00740; 36000; 36415; 36430; 74022; 80048; 80053; 81000; 82270; 83605; 83690; 85014; 85018; 85025; 86850; 86900; 86901; 86922; 87077; 87081; 87086; 87186; 96360; 96361; 96374; 96375; 99100; 99284; G0378; J0696; J1170; J1642; J2405; J2704; P9016; Q0162; A9270-GY